=== PATIENT | female | born 1955 | race Caucasian/White ===

== ENCOUNTER 2018-09-01 01:38 | Emergency (ER) | payer MEDICAID ==
[2018-09-01 02:12] LABS: ABSOLUTE BASOPHILS # (AUTO) 0.1 10^3/uL (0.0-0.2); ABSOLUTE EOSINOPHILS # (AUTO) 0.6 10^3/uL (0.0-0.6); ABSOLUTE LYMPHOCYTES (AUTO) 1.6 10^3/uL (0.5-4.7); ABSOLUTE MONOCYTES (AUTO) 1.1 10^3/uL (0.1-1.4); ABSOLUTE NEUT (AUTO) 11.7 10^3/uL (1.7-8.2); BASOPHILS % (AUTO) 0.6 % (0-2); EOSINOPHILS % (AUTO) 4.3 % (0-6); HEMATOCRIT 36.6 % (36.0-47.0); HEMOGLOBIN 11.7 g/dL (12.0-15.5); LYMPHOCYTES % (AUTO) 10.7 % (13-45); MEAN CORPUSCULAR HEMOGLOBIN 27.7 pg (27.0-33.4); MEAN CORPUSCULAR HGB CONC 32.1 g/dL (32.0-36.0); MEAN CORPUSCULAR VOLUME 86 fl (80-97); PLATELET COUNT 271 10^3/uL (150-450); RED BLOOD COUNT 4.24 10^6/uL (3.72-5.28); RED CELL DISTRIBUTION WIDTH 16.8 % (11.5-14.0); SEGMENTED NEUTROPHILS % (AUTO) 77.4 % (42-78); TOTAL CELLS COUNTED % (AUTO) 100 %; WHITE BLOOD COUNT 15.1 10^3/uL (4.0-10.5)
--- NOTE | 2018-09-01 02:12 | ER Document Report ---
ED Cardiac - General Stated Complaint: CHEST PAIN Time Seen by Provider: 09/01/18 01:44 Primary Care Provider: MEDINA DUNHAM MD [Primary Care Provider] - Follow up as needed - [facility] Notes: Patient is a 63-year-old female with a history of hypertension, high cholesterol, diabetes, A. fib, and a triple bypass 1 month ago who presents to the emergency department via EMS for the chief complaint of chest pressure. Patient states that around 7 PM tonight she was walking into the restaurant she developed the chest pressure which has continued to get worse. Patient states that it feels like a constant pressure in the center of her chest and is accompanied with shortness of breath. Patient does deny nausea or abdominal pain. Patient reports that her pain is a 5 out of 5. Patient states pain is worse she takes a deep breath. Patient states that she did take 4 baby aspirin at home prior to EMS arrival. Patient is on Eliquis. - Related Data Allergies/Adverse Reactions: metronidazole [From Flagyl] Allergy (Severe, Verified 12/20/13 03:10) Rash Metronidazole HCl [From Flagyl] Allergy (Severe, Verified 12/20/13 03:10) Rash Past Medical History - General Information source: Patient - Social History Smoking Status: Unknown if Ever Smoked Frequency of alcohol use: None Drug Abuse: None Family History: Reviewed & Not Pertinent - Past Medical History Cardiac Medical History: Reports: Hx Atrial Fibrillation, Hx Hypercholesterolemia, Hx Hypertension Pulmonary Medical History: Reports: Hx Asthma, Hx Bronchitis Denies: Hx COPD, Hx Pneumonia, Hx Respiratory Failure, Hx Sleep Apnea, Hx Tuberculosis EENT Medical History: Reports: None Neurological Medical History: Reports: None. Denies: Hx Cerebrovascular Accident, Hx Seizures Endocrine Medical History: Reports: Hx Diabetes Mellitus Type 2. Denies: Hx Graves' Disease, Hx Hyperthyroidism, Hx Hypothyroidism Renal/ Medical History: Reports: None. Denies: Hx End Stage Renal Disease, Hx Kidney Stones, Hx Peritoneal Dialysis Malignancy Medical History: Reports: None. Denies: Hx Lung Cancer GI Medical History: Reports: Hx Gastroesophageal Reflux Disease, Hx Hiatal Hernia, Hx Irritable Bowel. Denies: Hx Crohn's Disease, Hx Liver Failure, Hx Pancreatitis, Hx Ulcer Musculoskeletal Medical History: Reports Hx Arthritis - Lt shoulder, Rt knee, Denies Hx Fibromyalgia, Denies Hx Muscular Dystrophy, Denies Hx Systemic Lupus Erythematosus Skin Medical History: Reports None Psychiatric Medical History: Reports: None Denies: Hx Bipolar Disorder, Hx Depression, Hx Post Traumatic Stress Disorder, Hx Schizophrenia Traumatic Medical History: Reports: Hx Fractures - Rt pinky finger Infectious Medical History: Reports: None Past Surgical History: Reports: Hx Appendectomy, Hx Cardiac Surgery - Triple Bypass 2019, Hx Cholecystectomy, Hx Tubal Ligation. Denies: Hx Bowel Surgery, Hx Section, Hx Colostomy, Hx Coronary Artery Bypass Graft, Hx Gastric Bypass Surgery, Hx Herniorrhaphy, Hx Hysterectomy, Hx Mastectomy, Hx Pacemaker. Comment Only: Hx Tonsillectomy - unsure - Immunizations Hx Diphtheria, Pertussis, Tetanus Vaccination: Yes Review of Systems - Review of Systems Constitutional: No symptoms reported EENT: No symptoms reported Cardiovascular: See HPI Respiratory: See HPI Gastrointestinal: No symptoms reported Genitourinary: No symptoms reported Female Genitourinary: No symptoms reported Musculoskeletal: No symptoms reported Skin: No symptoms reported Hematologic/Lymphatic: No symptoms reported Neurological/Psychological: No symptoms reported Physical Exam - Vital signs Vitals: Resp 33 H 09/01/18 01:41 - Notes Notes: Reviewed vital signs and nursing note as charted by RN. CONSTITUTIONAL: Obese, Well-nourished. Moaning in pain. HEAD: Normocephalic; atraumatic; No swelling ENT: Airway patent, mucous membranes pink and moist NECK: Supple, no cervical lymphadenopathy, no masses CARD: Tachycardiac rate and rhythm; no murmurs, no rubs, no gallops, capillary refill < 2 seconds, symmetric pulses. Healing scar located in the center of the chest - no drainage, surrounding cellulitis or open areas. Tender to palpation around scar. RESP: Respiratory rate and effort are somewhat labored with a RR of 24. There is normal chest excursion. The lungs are clear to auscultation bilaterally, no wheezing, no rales, no rhonchi. ABD/GI: Normal bowel sounds; non-distended; soft, non-tender, no rebound, no guarding, no palpable organomegaly EXT: Old scars noted to bilateral knees, symmetric dorsalis pedis pulses < 2 sec, + 3 pitting edema to right lower extremity. SKIN: Normal color for age and race; warm; dry; good turgor; healing surgical scars x 2 to right lower extremity. NEURO: No facial asymmetry; Moves all extremities equally; Motor and sensory function intact Course - Re-evaluation Re-evalutation: 09/01/18 02:00 Upon initial eval of patient, patient is sitting upright on stretcher moaning and complaining of midsternal chest pressure. Patient did take baby aspirin x4 prior to arrival. Will give sublingual nitro for her discomfort. Appropriate labs and imaging ordered at this time. Family at bedside. Patient sitting upright on stretcher in no acute distress. Patient states that her pain level is a 1 out of 5. Patient states that it feels like there is still just a little bit of pressure in the center of her chest. 0459: Spoke with Dr. Galan regarding possible admission. Would like for me to contact patient's surgeon at [facility] for recommendations. 0503: Spoke with Dr. Bud Moseley, credit and loan collections supervisor cardiology for [facility] and made aware of patient's case, including negative first Troponin and current chest pressure 1/5. Per Dr. Bud Moseley's recommendations he states to repeat Troponin after four hours and if negative patient can follow up outpatient for stress test. 09/01/18 07:06 Patient sitting upright on stretcher on 2 L nasal cannula patient reports that since her surgery she has been wearing 2 L of oxygen. Patient reports that she still having a chest pressure about a 1 out of 5. The second troponin was negative and per the recommendations of Dr. Bud Moseley at [facility] patient can be discharged with close follow-up with her barrel inspector tight. Instructed patient to call her barrel inspector tight tomorrow to make aware of her ER visit and chest pressure for outpatient studies. Strict return precautions given to patient to include chest pain, dizziness, worsening of pain, diaphoresis, vomiting, palpitations. She does not appear to be in any acute distress. Patient skin is warm and dry. Patient breathing is even and unlabored. 09/01/18 07:33 After a thorough conversation with the significant other and patient, the significant other states that over the past few weeks they both have been unable to sleep at night. He reports that the patient will sleep 1 or 2 hours at a time and then wake up moaning due to the pain and soreness in the middle of her chest over the scar. After speaking with the patient it appears that this discomfort that she was feeling is not new as of last night but rather has been on going. Patient states that if she could just get some pain relief and some sleep that she would feel comfortable going home. Administer a another dose of pain medication and let patient rest. If patient is feeling well will continue with the discharge home. Patient significant other verbalized understanding of plan. - Vital Signs Vital signs: Temp Pulse Resp BP Pulse Ox 99.0 F 16 146/90 H 96 09/01/18 02:22 09/01/18 07:01 09/01/18 07:00 09/01/18 07:01 - Laboratory Result Diagrams: 09/01/18 01:50 09/01/18 01:50 Laboratory results interpreted by me: 09/01/18 09/01/18 01:50 01:50 WBC 15.1 H Hgb 11.7 L RDW 16.8 H Lymphocytes % 10.7 L Absolute Neutrophils 11.7 H Chloride 97 L Glucose 299 H Alkaline Phosphatase 144 H Patient's blood glucose was 299 with laboratory draw. Patient's CO2 and anion gap are within normal. Patient is not acidotic. Patient's white blood cell count is slightly elevated at 15.1. Patient's repeat oral temperature is 98.4. - Diagnostic Test Radiology reviewed: Reports reviewed - EKG Interpretation by Me Additional EKG results interpreted by me: 09/01/18 02:00 Patient's EKG shows a sinus tachycardia with a rate of 100. Patient's OR interval is at 172 and normal, patient's QT is 344 and QTC is 444. She has a no rmal axis deviation. There appears to be a small amount of T wave inversion in lead 3 but this is not consecutive in other leads. There is no ST elevation or ectopy noted. Discharge - Discharge Clinical Impression: Chest pressure Condition: Stable Disposition: HOME, SELF-CARE Additional Instructions: Today you were seen in the emergency department for chest pressure. Your chest x-ray was negative. We did obtain blood work 2 different times to check for your cardiac markers called a Troponin. Those 2 markers were negative. I did speak with the on-call barrel inspector tight at [facility] Dr. Moseley who stated that if your cardiac enzymes were negative and your vital signs were stable you are able to go home and follow-up with your barrel inspector tight Sunday for further testing. Due to your recent surgery it is imperative that you follow-up with your barrel inspector tight on Sunday. Please return to the emergency department if you have any worsening chest pain, palpitations, shortness of breath, diaphoresis (which is sweating), vomiting, fever, any worsening signs or symptoms. Please continue your previously prescribed medications. Your blood sugar and your lab work was 299. Please recheck your blood sugars and follow-up in closely at home. Please continue your diabetic medications as previously prescribed. Chest Pain of Unclear Cause The exact cause of your chest pain isn't clear. Fortunately, there is no evidence of a dangerous medical condition. Further testing may be required to find the source of the pain. Most often, we find that this pain is coming from the chest wall -- the muscles or rib joints in the chest. But chest pain can come from the lung and lung lining, the esophagus, the heart valves or heart lining, and even the stomach or gallbladder. Rest. Eat lightly until the pain is gone. We may prescribe medicine for pain and inflammation. You should call the physician immediately if the pain radiates to the shoulder, jaw or arms; if you start to run a fever or develop a cough; or if you develop shortness of breath, or other new or alarming symptoms. Chest Wall Pain Your chest pain has been diagnosed as coming from the chest wall. This is often caused by straining the muscles or joints in the chest during physical activity, direct trauma, coughing, or vigorous vomiting. Persons with arthritis are especially prone to this type of pain, due to inflammation of the cartilage joints near the breast bone. Occasionally, no cause can be found. Rest from strenuous physical activity. This kind of chest pain is usually made worse by movement of the chest. Depending on the symptoms, we may prescribe medicine for pain, muscle relaxation, and antiinflammatory effects. If the pain is new, and seems to be due to muscle strain, cold packs can help. Otherwise, apply gentle warmth to the painful area for 15 minutes every ho ur or two. You should contact the doctor immediately if things change. Further evaluation is needed if you develop a fever or cough, if the nature of the pain changes, or if you become short of breath. Referrals: MEDINA DUNHAM MD [Primary Care Provider] - Follow up as needed
[2018-09-01 02:13] LABS: INTERNATIONAL RATION (INR) 1.02; PROTHROMBIN TIME 13.9 SEC (11.4-15.4)
[2018-09-01 02:14] LABS: PARTIAL THROMBOPLASTIN TIME 33.7 SEC (23.5-35.8)
[2018-09-01 02:18] LABS: ALANINE AMINOTRANSFERASE 34 U/L (9-52); ALBUMIN 3.9 g/dL (3.5-5.0); ALKALINE PHOSPHATASE 144 U/L (38-126); ANION GAP 12 (5-19); ASPARTATE AMINO TRANSFERASE 30 U/L (14-36); BILIRUBIN,DIRECT 0.3 mg/dL (0.0-0.4); BILIRUBIN,TOTAL 0.5 mg/dL (0.2-1.3); BLOOD UREA NITROGEN 12 mg/dL (7-20); CALCIUM 9.4 mg/dL (8.4-10.2); CARBON DIOXIDE 29 mmol/L (22-30); CHLORIDE 97 mmol/L (98-107); GLUCOSE 299 mg/dL (75-110); POTASSIUM 4.7 mmol/L (3.6-5.0); SODIUM 137.8 mmol/L (137-145); TOTAL PROTEIN 7.4 g/dL (6.3-8.2)
--- NOTE | 2018-09-01 02:48 | RADIOLOGY REPORT (SQ) ---
EXAM DESCRIPTION: XR CHEST 1 VIEW COMPLETED DATE/TME: 09/01/2018 01:50 CLINICAL HISTORY: 63 years Female, chest pain COMPARISON: None. NUMBER OF VIEWS/TECHNIQUE: 1/AP FINDINGS: Adequate lung volume, clear parenchyma, normal cardiac silhouette, and intact bony thorax.Sternotomy. Cardiac/mediastinal hardware/clips. IMPRESSION: No acute cardiopulmonary findings.
[2018-09-01] MEDS: NITROGLYCERIN 0.4 MG/TAB 25 TAB/BOTTLE SL PRN ×2 (03:02→03:13)
[2018-09-01] MEDS ORDERED: FENTANYL CITRATE INJ/PF 100 MCG/2 ML AMPUL IV ONE (03:39)
[2018-09-01] MEDS ORDERED: MORPHINE SULFATE 10 MG/ML INJ IV ONE ×2 (04:26→07:35)
[2018-09-01 09:01] VITALS: BP 129/70
[2018-09-01] MEDS ORDERED: OXYCODONE-ACETAMINOPHEN 5-325 MG TABLET PO ONE (09:31)
--- NOTE | 2018-09-01 09:42 | EKG REPORT ---
SEVERITY:- BORDERLINE ECG - SINUS TACHYCARDIA BORDERLINE T WAVE ABNORMALITIES : Confirmed by: Liudmila Daley MD 01-Sep-2018 09:41:22
== END 2018-09-01 09:39 | disposition home or self-care (01) ==
LOC: ER 01:38
DX: R07.89 Other chest pain (principal); J45.909 Unspecified asthma, uncomplicated; R06.02 Shortness of breath; R60.0 Localized edema; R00.0 Tachycardia, unspecified; D72.829 Elevated white blood cell count, unspecified; I10 Essential (primary) hypertension; E11.9 Type 2 diabetes mellitus without complications; I48.91 Unspecified atrial fibrillation; Z79.01 Long term (current) use of anticoagulants; Z95.1 Presence of aortocoronary bypass graft; Z88.1 Allergy status to other antibiotic agents
CPT/HCPCS: 93005; 96376; 99285; 96374; 96375; 36415; 85025; 85610; 85730; 80053; 84484; 71045; 93010; J3010; J2270; J3490

== ENCOUNTER 2019-10-30 18:50 | Inpatient (IN) | payer MEDICAID ==
[2019-10-30] MEDS ORDERED: DEXTROSE 50%-WATER 25 GM/50 ML DISP.SYRIN IV ONE ×2 (19:03→19:06)
[2019-10-30 19:20] LABS: ABSOLUTE BASOPHILS # (AUTO) 0.1 10^3/uL (0.0-0.2); ABSOLUTE EOSINOPHILS # (AUTO) 0.2 10^3/uL (0.0-0.6); ABSOLUTE LYMPHOCYTES (AUTO) 1.4 10^3/uL (0.5-4.7); ABSOLUTE MONOCYTES (AUTO) 0.9 10^3/uL (0.1-1.4); ABSOLUTE NEUT (AUTO) 8.5 10^3/uL (1.7-8.2); BASOPHILS % (AUTO) 1.1 % (0-2); HEMATOCRIT 25.4 % (36.0-47.0); HEMOGLOBIN 8.1 g/dL (12.0-15.5); LYMPHOCYTES % (AUTO) 12.4 % (13-45); MEAN CORPUSCULAR HEMOGLOBIN 26.3 pg (27.0-33.4); MEAN CORPUSCULAR HGB CONC 32.1 g/dL (32.0-36.0); MEAN CORPUSCULAR VOLUME 82 fl (80-97); MONOCYTES % (AUTO) 8.3 % (3-13); PLATELET COUNT 138 10^3/uL (150-450); RED CELL DISTRIBUTION WIDTH 23.6 % (11.5-14.0); SEGMENTED NEUTROPHILS % (AUTO) 76.2 % (42-78); TOTAL CELLS COUNTED % (AUTO) 100 %; WHITE BLOOD COUNT 11.2 10^3/uL (4.0-10.5)
[2019-10-30 19:53] LABS: ALBUMIN 3.7 g/dL (3.5-5.0); ALKALINE PHOSPHATASE 129 U/L (38-126); ANION GAP 6 (5-19); ASPARTATE AMINO TRANSFERASE 39 U/L (14-36); BILIRUBIN,DIRECT 0.1 mg/dL (0.0-0.4); BILIRUBIN,TOTAL 0.6 mg/dL (0.2-1.3); BLOOD UREA NITROGEN 33 mg/dL (7-20); CALCIUM 8.7 mg/dL (8.4-10.2); CARBON DIOXIDE 37 mmol/L (22-30); CHLORIDE 95 mmol/L (98-107); POTASSIUM 4.6 mmol/L (3.6-5.0)
[2019-10-30 19:56] LABS: GLUCOSE 46 mg/dL (75-110)
--- NOTE | 2019-10-30 20:47 | ER Document Report ---
ED General - General Chief Complaint: Low Blood Sugar Stated Complaint: BLOOD SUGAR PROBLEMS Primary Care Provider: MEDINA DUNHAM MD [Primary Care Provider] - Follow up as needed Mode of Arrival: Medic Information source: Patient, Relative, Emergency Med Personnel, [facility] Records Cannot obtain history due to: Altered mental status Notes: Patient is a 64-year-old female presenting to the emergency department chief complaint of low blood sugar and altered mental status. On further discussion with the patient's he states that the patient has been acting unusual for the past several days has been more confused has been twitching and demonstrating slurring of speech. Patient has a prior history of coronary artery disease CHF frequent UTIs pericarditis and diabetes. Patient is reported to use oxygen supplemental at home. At time of evaluation patient seems to have waxing and waning of her level of consciousness. TRAVEL OUTSIDE OF THE [place] IN LAST 30 DAYS: No - HPI Onset: Other - 3 days Onset/Duration: Persistent, Worse Quality of pain: No pain Severity: None Pain Level: 0 Associated symptoms: Shortness of breath, Slow to respond, Weakness Exacerbated by: Denies Relieved by: Denies Similar symptoms previously: Yes Recently seen / treated by doctor: No - Related Data Allergies/Adverse Reactions: metronidazole [From Flagyl] Allergy (Severe, Verified 12/20/13 03:10) Rash Metronidazole HCl [From Flagyl] Allergy (Severe, Verified 12/20/13 03:10) Rash Past Medical History - General Information source: Patient, Relative, Emergency Med Personnel, [facility] Records Cannot obtain history due to: Altered mental status - Social History Smoking Status: Former Smoker Chew tobacco use (# tins/day): No Frequency of alcohol use: None Drug Abuse: None Lives with: Spouse/Significant other Family History: Reviewed & Not Pertinent Patient has suicidal ideation: No Patient has homicidal ideation: No - Past Medical History Cardiac Medical History: Reports: Hx Atrial Fibrillation, Hx Hypercholesterolemia, Hx Hypertension Pulmonary Medical History: Reports: Hx Asthma, Hx Bronchitis Denies: Hx COPD, Hx Pneumonia, Hx Respiratory Failure, Hx Sleep Apnea, Hx Tuberculosis Neurological Medical History: Denies: Hx Cerebrovascular Accident, Hx Seizures Endocrine Medical History: Reports: Hx Diabetes Mellitus Type 2. Denies: Hx Graves' Disease, Hx Hyperthyroidism, Hx Hypothyroidism Renal/ Medical History: Denies: Hx End Stage Renal Disease, Hx Kidney Stones, Hx Peritoneal Dialysis Malignancy Medical History: Denies: Hx Lung Cancer GI Medical History: Reports: Hx Gastroesophageal Reflux Disease, Hx Hiatal Hernia, Hx Irritable Bowel. Denies: Hx Crohn's Disease, Hx Liver Failure, Hx Pancreatitis, Hx Ulcer Musculoskeletal Medical History: Reports Hx Arthritis - Lt shoulder, Rt knee, Denies Hx Fibromyalgia, Denies Hx Muscular Dystrophy, Denies Hx Systemic Lupus Erythematosus Psychiatric Medical History: Denies: Hx Bipolar Disorder, Hx Depression, Hx Post Traumatic Stress Disorder, Hx Schizophrenia Traumatic Medical History: Reports: Hx Fractures - Rt pinky finger Past Surgical History: Reports: Hx Appendectomy, Hx Cardiac Surgery - Triple Bypass 2019, Hx Cholecystectomy, Hx Tubal Ligation. Denies: Hx Bowel Surgery, Hx Section, Hx Colostomy, Hx Coronary Artery Bypass Graft, Hx Gastric Bypass Surgery, Hx Herniorrhaphy, Hx Hysterectomy, Hx Mastectomy, Hx Pacemaker. Comment Only: Hx Tonsillectomy - unsure - Immunizations Hx Diphtheria, Pertussis, Tetanus Vaccination: Yes Review of Systems - Review of Systems Notes: REVIEW OF SYSTEMS: CONSTITUTIONAL : Per HPI EENT: Denies eye, ear, throat, or mouth pain or symptoms. Denies nasal or sinus congestion. CARDIOVASCULAR: Denies chest pain. RESPIRATORY: Per HPI GASTROINTESTINAL: Denies abdominal pain. Denies nausea, vomiting, or diarrhea. Denies constipation. GENITOURINARY: Denies difficulty urinating, painful urination, burning, frequency, or blood in urine. MUSCULOSKELETAL: Denies neck or back pain or joint pain or swelling. SKIN: Denies rash or skin lesions. HEMATOLOGIC : Denies easy bruising or bleeding. NEUROLOGICAL: Per HPI PSYCHIATRIC: Denies suicidal or homicidal ideations 10 Systems are negative unless otherwise specified above Physical Exam - Vital signs Vitals: BP 130/83 H 10/30/19 18:56 - Notes Notes: PHYSICAL EXAMINATION: GENERAL: Patient is a 60-year-old female appearing older than stated age presenting to the emergency department for altered mental status low blood glucose slurring of speech and shortness of breath HEAD: Atraumatic, normocephalic. EYES: Pupils equal round and reactive to light, extraocular movements intact, sclera anicteric, conjunctiva are normal. ENT: nares patent, oropharynx clear without exudates. Dry mucous membranes. NECK: Normal range of motion, supple without lymphadenopathy, no appreciable JVD LUNGS: Lungs clear to auscultation bilaterally and equal. No wheezes rales or rhonchi. HEART: Regular rate and rhythm without murmurs ABDOMEN: Soft, morbidly obese, nontender, normal bowel sounds. No guarding, no rebound. No masses appreciated. EXTREMITIES: Active full range of motion, no pitting or edema. No cyanosis. 2+ pulses x4 NEUROLOGICAL: Waxing and waning of patient's level of consciousness intermittently answering questions appropriately and other times seems very confused she states that her birthday is November 2009 SKIN: Warm, Dry, and intact. Normal turgor, no rashes or lesions noted. Course - Re-evaluation Re-evalutation: 10/30/19 22:54 Patient has been maintained on a potline monitor the entire time in the emergency department we have done serial Accu-Cheks observing her blood glucose level which is remained normal most recently at 10:45 PM patient's blood glucose was 130. Patient has been reevaluated several times is may be a little bit more clear and responsive but still is demonstrating some difficulty with speech and confusion. On examination there is no focal neurologic deficit however when looking for upper extremity pronator drift the patient does have a wobbly bilateral movement. On evaluation of the patient's labs she does show a new anemia continued acute kidney injury she does have a urinary tract infection for which she has received 1 g of Rocephin IV patient also has signs of CHF numerically. Which may also be secondary to her renal insufficiency. - Vital Signs Vital signs: Temp Pulse Resp BP Pulse Ox 98.2 F 19 120/72 91 L 10/30/19 19:06 10/30/19 19:03 10/30/19 19:03 10/30/19 19:03 - Laboratory Result Diagrams: 10/30/19 19:00 10/30/19 19:00 Laboratory results interpreted by me: 10/30/19 10/30/19 10/30/19 19:00 19:00 19:00 WBC 11.2 H RBC 3.10 L Hgb 8.1 L Hct 25.4 L MCH 26.3 L RDW 23.6 H Plt Count 138 L Lymph % (Auto) 12.4 L Absolute Neuts (auto) 8.5 H PT 20.5 H Carbonic Acid ABG pCO2 ABG pO2 ABG HCO3 ABG Total CO2 Chloride 95 L Carbon Dioxide 37 H BUN 33 H Creatinine 2.17 H Est GFR ( Amer) 28 L Est GFR (MDRD) Non-Af 23 L Glucose 46 L POC Glucose Hemoglobin A1c % Magnesium AST 39 H Alkaline Phosphatase 129 H NT-Pro-B Natriuret Pep Urine Protein Ur Leukocyte Esterase Urine Ascorbic Acid Acetaminophen 10/30/19 10/30/19 10/30/19 19:00 19:00 19:00 WBC RBC Hgb Hct MCH RDW Plt Count Lymph % (Auto) Absolute Neuts (auto) PT Carbonic Acid ABG pCO2 ABG pO2 ABG HCO3 ABG Total CO2 Chloride Carbon Dioxide BUN Creatinine Est GFR ( Amer) Est GFR (MDRD) Non-Af Glucose POC Glucose Hemoglobin A1c % 7.4 H Magnesium 2.7 H AST Alkaline Phosphatase NT-Pro-B Natriuret Pep 2530 H Urine Protein Ur Leukocyte Esterase Urine Ascorbic Acid Acetaminophen < 10 L 10/30/19 10/30/19 10/30/19 19:01 19:12 20:03 WBC RBC Hgb Hct MCH RDW Plt Count Lymph % (Auto) Absolute Neuts (auto) PT Carbonic Acid ABG pCO2 ABG pO2 ABG HCO3 ABG Total CO2 Chloride Carbon Dioxide BUN Creatinine Est GFR ( Amer) Est GFR (MDRD) Non-Af Glucose POC Glucose 67 L 253 H 164 H Hemoglobin A1c % Magnesium AST Alkaline Phosphatase NT-Pro-B Natriuret Pep Urine Protein Ur Leukocyte Esterase Urine Ascorbic Acid Acetaminophen 10/30/19 10/30/19 10/30/19 20:50 21:40 22:45 WBC RBC Hgb Hct MCH RDW Plt Count Lymph % (Auto) Absolute Neuts (auto) PT Carbonic Acid 1.62 H ABG pCO2 53.9 H ABG pO2 69.7 L ABG HCO3 35.3 H ABG Total CO2 37.0 H Chloride Carbon Dioxide BUN Creatinine Est GFR ( Amer) Est GFR (MDRD) Non-Af Glucose POC Glucose 130 H Hemoglobin A1c % Magnesium AST Alkaline Phosphatase NT-Pro-B Natriuret Pep Urine Protein 30 H Ur Leukocyte Esterase LARGE H Urine Ascorbic Acid 40 H Acetaminophen - Diagnostic Test Radiology reviewed: Reports reviewed Critical Care Note - Critical Care Note Total time excluding time spent on procedures (mins): 40 Comments: Please allow 40 minutes of critical care time spent obtaining history from patient or surrogate, discussions with consultants, development of treatment plan with patient or surrogate, evaluation of patient's response to treatment, examination of patient. This also includes ordering and reviewing laboratory, EKG and / or radiologic studies, performing and reassessing treatments and i nterventions as well as reviewing previous visits and old charts. This is exclusive of separately billable procedures. Discharge - Discharge Clinical Impression: FELIX (acute kidney injury), Hypoglycemia associated with diabetes Altered mental status Qualifiers: Altered mental status type: disorientation Qualified Code(s): R41.0 - Disorientation, unspecified UTI (urinary tract infection) Qualifiers: Urinary tract infection type: site unspecified Hematuria presence: without hematuria Qualified Code(s): N39.0 - Urinary tract infection, site not specified Anemia Qualifiers: Anemia type: unspecified type Qualified Code(s): D64.9 - Anemia, unspecified Condition: Fair Disposition: ADMITTED INPATIENT Admitting Provider: Lan (Hospitalist) Unit Admitted: Medical Floor Referrals: MEDINA DUNHAM MD [Primary Care Provider] - Follow up as needed
[2019-10-30 21:00] LABS: INTERNATIONAL RATION (INR) 1.73; PROTHROMBIN TIME 20.5 SEC (11.4-15.4)
--- NOTE | 2019-10-30 21:04 | EKG REPORT ---
SEVERITY:- ABNORMAL ECG - SINUS RHYTHM FIRST DEGREE AV BLOCK BORDERLINE T WAVE ABNORMALITIES : Confirmed by: Pop Ordoñez MD 30-Oct-2019 21:02:31
[2019-10-30 21:10] LABS: ACETAMINOPHEN < 10 ug/mL (10-30); ALCOHOL < 10 mg/dL (NONE DETECTED)
[2019-10-30 21:21] LABS: APPEARANCE,URINE CLOUDY; BILIRUBIN,URINE NEGATIVE (NEGATIVE); COLOR,URINE AMBER; GLUCOSE, URINE NEGATIVE (NEGATIVE); KETONES,URINE NEGATIVE (NEGATIVE); LEUKOCYTE ESTERASE,URINE LARGE (NEGATIVE); NITRITE,URINE NEGATIVE (NEGATIVE); PROTEIN,URINE 30 mg/dL (NEGATIVE); URINE SPECIFIC GRAVITY 1.012; UROBILINOGEN,URINE NEGATIVE mg/dL (<2.0)
[2019-10-30 21:22] LABS: CREATINE KINASE MB 2.42 ng/mL (<4.55); NT PRO BNP 2530 pg/mL (<125)
[2019-10-30 21:31] LABS: TROPONIN I < 0.012 ng/mL
[2019-10-30] MEDS ORDERED: CEFTRIAXONE 1 GM/D5W RTU 1 GM/50 ML RTUPB IV ONE (21:51)
[2019-10-30 21:57] LABS: ARTERIAL BLOOD BASE EXCESS 9.8 mmol/L; ARTERIAL BLOOD FIO2 3.5L; ARTERIAL BLOOD H2CO3 1.62 mmol/L (1.05-1.35); ARTERIAL BLOOD HCO3 35.3 mmol/L (20-24); ARTERIAL BLOOD O2 SATURATION 94.2 % (94-98); ARTERIAL BLOOD PCO2 53.9 mmHg (35-45); ARTERIAL BLOOD PH 7.43 (7.35-7.45); ARTERIAL BLOOD PO2 69.7 mmHg (80-100)
--- NOTE | 2019-10-30 22:21 | RADIOLOGY REPORT (SQ) ---
EXAM DESCRIPTION: X-ray, AP portable view of the chest CLINICAL HISTORY: 64 years Female, sob COMPARISON: AP portable view of the chest 09/01/2018 FINDINGS: Lungs: Lungs are clear. No pneumonia or edema. No pneumothorax or pleural effusion. Mediastinum: Heart size is enlarged. Atrial excluded clip is seen. Sternal wires are noted. Overall the appearance is stable. Bones: Osseous structures are stable IMPRESSION: No acute process. Stable cardiomegaly.
--- NOTE | 2019-10-30 22:21 | RADIOLOGY REPORT (SQ) ---
EXAM DESCRIPTION: CT HEAD WITHOUT IV CONTRAST COMPLETED DATE/TME: 10/30/2019 20:42 CLINICAL HISTORY: 64 years, Female, ams COMPARISON: 12/20/2013 CT TECHNIQUE: 201 Images stored on PACS. All CT scanners at this facility use dose modulation, iterative reconstruction, and/or weight based dosing when appropriate to reduce radiation dose to as low as reasonably achievable (ALARA). [facility]: Dose Right [facility]: CareDose [facility]: Dose Right [facility]: Teradose 4D [facility]: [employer] LIMITATIONS: None. FINDINGS: The globes are intact. Minor mucosal thickening of the maxillary sinuses. No displaced or depressed skull fracture. No intra or extra-axial hemorrhage. CT is limited for evaluation of acute infarct. No CT evidence for large or territorial acute infarct. No mass or midline shift. Mild atrophy with minor small vessel ischemic change IMPRESSION: Mild atrophy and small vessel ischemic change. No acute intracranial abnormality. TECHNICAL DOCUMENTATION: Quality ID # [id number]: Final reports with documentation of one or more dose reduction techniques (e.g., Automated exposure control, adjustment of the mA and/or kV according to patient size, use of iterative reconstruction technique) copyright 2011 [employer]- All Rights Reserved
[2019-10-30] MEDS ORDERED: NORMAL SALINE 1000 ML 1,000 ML IV ONE (23:08)
[2019-10-30] MEDS ORDERED: MAG HYDROX/AL HYDROX/SIMETH SUSP 30 ML UDCUP PO PRN (23:42)
[2019-10-30] MEDS ORDERED: ONDANSETRON HCL INJ/PF 4 MG/2 ML SDV IV PRN (23:42)
[2019-10-30] MEDS ORDERED: MAGNESIUM HYDROXIDE SUSP 30 ML UDCUP PO PRN (23:42)
[2019-10-30] MEDS ORDERED: GUAIFENESIN SYRP 200 MG/10 ML UDC PO PRN (23:48)
[2019-10-30] MEDS ORDERED: ACETAMINOPHEN 650 MG SUPP.RECT PR PRN (23:48)
[2019-10-30] MEDS ORDERED: ACETAMINOPHEN 325 MG TABLET PO PRN (23:48)
[2019-10-30] MEDS ORDERED: METOPROLOL TARTRATE PF/INJ 5 MG/5 ML SDV IV PRN (23:48)
[2019-10-30] MEDS ORDERED: HYDRALAZINE HCL INJ/PF 20 MG/1 ML SDV IV PRN (23:48)
[2019-10-30] MEDS ORDERED: DEXTROSE 50%-WATER 25 GM/50 ML DISP.SYRIN IV PRN ×2 (23:49)
[2019-10-30] MEDS ORDERED: GLUCAGON,HUMAN RECOMB 1 MG INJ IM PRN (23:49)
[2019-10-30] MEDS ORDERED: DEXTROSE 40% GEL 15 GM TUBE PO PRN ×2 (23:49)
[2019-10-31] MEDS ORDERED: CEFEPIME 2 GM/D5W RTU 2 GM/50 ML RTUPB IV ONE (00:45)
[2019-10-31] MEDS ORDERED: PANTOPRAZOLE SODIUM 40 MG VIAL IV ONE ×2 (00:45→06:05)
[2019-10-31] MEDS: RINGERS SOLUTION,LACTATED 1,000 ML IV PRN ×2 (01:37→07:34)
--- NOTE | 2019-10-31 04:24 | PDOC H&P ---
History of Present Illness Admission Date/PCP: 10/30/2019 23:14 MEDINA DUNHAM MD Patient complains of: Altered mental status History of Present Illness: BISMARK MAURO is a 64 year old female who presented to the emergency room with a 3-day history of altered mental status. Patient is confused and incapable of providing reliable input into her medical history. Her admits that she has been progressively worsening in her altered mental state over the last 3 days with it becoming severe today. He describes his observed symptoms of her altered mental state as stupor, confusion and poor responsiveness to verbal stimuli. He admits prior similar problems related to hypoglycemia. In the emergency room the patient was found to be confused and somewhat stuporous with the presence of pyuria and a mildly elevated white blood count. Her initial blood sugar was 46 but it responded well to treatment and her mental status did not global director air and climate change the course of several hours after correction. CT scan of the head was negative for acute processes. She was subsequently admitted to the hospital for further evaluation and treatment. Past Medical History Past Medical History: Due to the patient's altered mental status her past medical history, past surgical history, social history and family medical history are obtained from the best available reliable source. Cardiac Medical History: Reports: Atrial Fibrillation, Coronary Artery Disease, Hyperlipidema, Hypertension, Other - Pericarditis Pulmonary Medical History: Reports: Asthma, Bronchitis Denies: Chronic Obstructive Pulmonary Disease (COPD), Pneumonia, Respiratory Failure, Sleep Apnea, Tuberculosis EENT Medical History: Denies: Cataracts, Ears - Hearing aids Neurological Medical History: Denies: Hemorrhagic CVA, Ischemic CVA, Seizures Endocrine Medical History: Reports: Diabetes Mellitus Type 2, Obesity Denies: Diabetes Mellitus Type 1, Hyperthyroidism, Hypothyroidism Renal/ Medical History: Denies: Chronic Kidney Disease, Nephrolithiasis Malignancy Medical History: Reports: None Denies: Lung Cancer GI Medical History: Reports: Gastroesophageal Reflux Disease, Hiatal Hernia Denies: Cirrhosis, Crohn's Disease, Hepatitis, Peptic Ulcer Disease Musculoskeltal Medical History: Reports: Arthritis - Lt shoulder, Rt knee Denies: Fibromyalgia, Gout Skin Medical History: Denies: Eczema Psychiatric Medical History: Denies: Alcohol Dependency, Bipolar Disorder, Depression, Post Traumatic Stress Disorder, Substance Abuse, Tobacco Dependency Traumatic Medical History: Reports: None Hematology: Denies: Anemia, Bleeding Tendencies Infectious Medical History: Reports: None Past Surgical History Past Surgical History: Due to the patient's altered mental status her past medical history, past surgical history, social history and family medical history are obtained from the best available reliable source. Past Surgical History: Reports: Appendectomy, Cholecystectomy, Knee Replacement, Orthopedic Surgery - Arthroscopic surgery of the left knee, Tubal Ligation Social History Information Source: Relative, [facility] Records Lives with: Spouse/Significant other Smoking Status: Former Smoker Electronic Cigarette use?: No Frequency of Alcohol Use: None Hx Recreational Drug Use: No Drugs: None Hx Prescription Drug Abuse: No Past Social History Note: Due to the patient's altered mental status her past medical history, past surgical history, social history and family medical history are obtained from the best available reliable source. - Advance Directive Resuscitation Status: Full Code Surrogate healthcare decision maker:: Carisa Camacho Family History Family History: CAD, DM, Hypertension, Malignancy Family History: Due to the patient's altered mental status her past medical history, past surgical history, social history and family medical history are obtained from the best available reliable source. Parental Family History Reviewed: Yes Children Family History Reviewed: No Sibling(s) Family History Reviewed.: Yes Medication/Allergy Home Medications: Albuterol Sulfate [Proair HFA] 1 - 2 puff IH Q4 PRN 12/20/13 Aspirin [Aspirin EC] 81 mg PO DAILY 12/20/13 Beclomethasone Dipropionate [Qvar] 2 inh IH BID 12/20/13 Gabapentin 600 mg PO TID 12/20/13 Glipizide [Glipizide Xl] 10 mg PO BID 12/20/13 Insulin Aspart [Novolog Flexpen] 15 unit SUBCUT TID 12/20/13 Insulin Glargine,Hum.rec.anlog [Lantus Insulin Inj 300 Unit/3 ml Pen] 40 unit SUBCUT QHS 12/20/13 Meloxicam 15 mg PO DAILY 12/20/13 Metformin HCl [Glucophage] 500 mg PO BID 12/20/13 Metoprolol Succinate 25 mg PO BID 12/20/13 Nifedipine [Procardia Xl] 90 mg PO DAILY 12/20/13 Ondansetron [Zofran Odt 4 mg Tablet] 1 - 2 tab PO Q4H PRN #15 tab.rapdis 12/20/13 Oxycodone HCl/Acetaminophen [Percocet 5-325 mg Tablet] 1 - 2 tab PO Q4H PRN #15 tablet 12/20/13 Propafenone HCl [Rythmol 150 Mg Tablet] 150 mg PO BID 12/20/13 Ranitidine HCl 150 mg PO BID 12/20/13 Allergies/Adverse Reactions: metronidazole [From Flagyl] Allergy (Severe, Verified 12/20/13 03:10) Rash Metronidazole HCl [From Flagyl] Allergy (Severe, Verified 12/20/13 03:10) Rash Review of Systems ROS unobtainable: Due to mental status - Altered mental status with confusion and stupor Physical Exam Vital Signs: Temp Pulse Resp BP Pulse Ox 98.2 F 18 107/78 97 10/30/19 19:06 10/30/19 23:01 10/30/19 23:01 10/30/19 23:01 Intake & Output 10/28/19 10/29/19 10/30/19 23:59 23:59 23:59 Intake Total 50 Output Total 1600 Balance -1550 Weight 120.8 kg General appearance: PRESENT: no acute distress, morbidly obese, other - Confused and stuporous Head exam: PRESENT: atraumatic, normocephalic Eye exam: PRESENT: conjunctiva pink. ABSENT: conjunctival injection, scleral icterus Ear exam: PRESENT: normal external ear exam. ABSENT: bleeding, drainage Mouth exam: PRESENT: dry mucosa, neck supple Neck exam: ABSENT: thyromegaly, tracheal deviation Respiratory exam: PRESENT: clear to auscultation shena, symmetrical, unlabored Cardiovascular exam: PRESENT: RRR. ABSENT: clicks, gallop, rubs Pulses: PRESENT: normal radial pulses, normal dorsalis pedis pul Vascular exam: PRESENT: normal capillary refill. ABSENT: pallor GI/Abdominal exam: PRESENT: normal bowel sounds, soft Rectal exam: PRESENT: deferred Extremities exam: PRESENT: pedal edema - Trace pedal edema bilaterally. ABSENT: joint swelling Musculoskeletal exam: ABSENT: deformity, dislocation Neurological exam: PRESENT: altered - Stuporous, other - Confused Psychiatric exam: PRESENT: other - Stuporous and confused Skin exam: PRESENT: dry, intact, warm. ABSENT: jaundice, rash, urticaria Results Laboratory Results: 10/30/19 19:00 10/30/19 19:00 10/30/19 10/30/19 10/30/19 19:00 19:00 19:00 WBC 11.2 H RBC 3.10 L Hgb 8.1 L Hct 25.4 L MCV 82 MCH 26.3 L MCHC 32.1 RDW 23.6 H Plt Count 138 L Seg Neutrophils % 76.2 Carbonic Acid HCO3/H2CO3 Ratio ABG pH ABG pCO2 ABG pO2 ABG HCO3 ABG O2 Saturation ABG Base Excess FiO2 Sodium 138.1 Potassium 4.6 Chloride 95 L Carbon Dioxide 37 H Anion Gap 6 BUN 33 H Creatinine 2.17 H Est GFR ( Amer) 28 L Glucose 46 L Lactic Acid Calcium 8.7 Magnesium 2.7 H Total Bilirubin 0.6 AST 39 H Alkaline Phosphatase 129 H Ammonia Total Protein 7.0 Albumin 3.7 Lipase 23.2 Urine Color Urine Appearance Urine pH Ur Specific [place] Urine Protein Urine Glucose (UA) Urine Ketones Urine Blood Urine Nitrite Ur Leukocyte Esterase Urine WBC (Auto) Urine RBC (Auto) 10/30/19 10/30/19 10/30/19 19:00 20:50 21:40 WBC RBC Hgb Hct MCV MCH MCHC RDW Plt Count Seg Neutrophils % Carbonic Acid 1.62 H HCO3/H2CO3 Ratio 21:1 ABG pH 7.43 ABG pCO2 53.9 H ABG pO2 69.7 L ABG HCO3 35.3 H ABG O2 Saturation 94.2 ABG Base Excess 9.8 FiO2 3.5L Sodium Potassium Chloride Carbon Dioxide Anion Gap BUN Creatinine Est GFR ( Amer) Glucose Lactic Acid 1.1 Calcium Magnesium Total Bilirubin AST Alkaline Phosphatase Ammonia Total Protein Albumin Lipase Urine Color MEHRDAD Urine Appearance CLOUDY Urine pH 5.0 Ur Specific [place] 1.012 Urine Protein 30 H Urine Glucose (UA) NEGATIVE Urine Ketones NEGATIVE Urine Blood NEGATIVE Urine Nitrite NEGATIVE Ur Leukocyte Esterase LARGE H Urine WBC (Auto) 135 Urine RBC (Auto) 1 10/30/19 22:49 WBC RBC Hgb Hct MCV MCH MCHC RDW Plt Count Seg Neutrophils % Carbonic Acid HCO3/H2CO3 Ratio ABG pH ABG pCO2 ABG pO2 ABG HCO3 ABG O2 Saturation ABG Base Excess FiO2 Sodium Potassium Chloride Carbon Dioxide Anion Gap BUN Creatinine Est GFR ( Amer) Glucose Lactic Acid Calcium Magnesium Total Bilirubin AST Alkaline Phosphatase Ammonia < 8.7 L Total Protein Albumin Lipase Urine Color Urine Appearance Urine pH Ur Specific [place] Urine Protein Urine Glucose (UA) Urine Ketones Urine Blood Urine Nitrite Ur Leukocyte Esterase Urine WBC (Auto) Urine RBC (Auto) 10/30/19 19:00 CK-MB (CK-2) 2.42 Troponin I < 0.012 NT-Pro-B Natriuret Pep 2530 H Impressions: Chest X-Ray 10/30/19 20:42 IMPRESSION: No acute process. Stable cardiomegaly. Head CT 10/30/19 20:42 IMPRESSION: Mild atrophy and small vessel ischemic change. No acute intracranial abnormality. TECHNICAL DOCUMENTATION: Quality ID # [id number]: Final reports with documentation of one or more dose reduction techniques (e.g., Automated exposure control, adjustment of the mA and/or kV according to patient size, use of iterative reconstruction technique) copyright 2011 [employer]- All Rights Reserved Assessment and Plan - Diagnosis (1) Acute delirium Is this a current diagnosis for this admission?: Yes (2) UTI (urinary tract infection) Qualifiers: Urinary tract infection type: site unspecified Hematuria presence: without hematuria Qualified Code(s): N39.0 - Urinary tract infection, site not specified Is this a current diagnosis for this admission?: Yes (3) FELIX (acute kidney injury) Is this a current diagnosis for this admission?: Yes (4) Morbid obesity with alveolar hypoventilation Is this a current diagnosis for this admission?: Yes (5) Diabetes mellitus type 2 in obese Is this a current diagnosis for this admission?: Yes (6) Hypoglycemia associated with diabetes Is this a current diagnosis for this admission?: Yes (7) Anemia Qualifiers: Anemia type: unspecified type Qualified Code(s): D64.9 - Anemia, unspecified Is this a current diagnosis for this admission?: Yes - Plan Summary Summary: Patient will be admitted to the medical floor where she will receive routine supportive and symptomatic cares. She will initially receive IV fluid utilizing lactated Ringer's at 167 mL/h. Neuro checks will be performed every 2 hours. She will be treated with IV cefepime pending urine and blood culture results. Every 4 hours Accu-Cheks will be obtained and sliding scale insulin will be used for hyperglycemia with a hypoglycemic protocol in place. Patient will be treated with CPAP using an FiO2 of 28% and pressure setting of 8. Serial lactic acid levels will be obtained. CBCs, metabolic profiles, magnesium levels and additional laboratory and/or radiographic evaluations will be obtained as appropriate. Patient will be treated with a cardiac, prerenal and diabetic restricted diet when she is able to take oral nutrition. Anemia profile will be obtained. - Time Time Spent with patient: Less than 15 minutes Medications reviewed and adjusted accordingly: Yes Anticipated discharge: Home - Inpatient Certification Based on my medical assessment, after consideration of the patient's comorbidities, presenting symptoms, or acuity I expect that the services needed warrant INPATIENT care.: Yes I certify that my determination is in accordance with my understanding of Medicare's requirements for reasonable and necessary INPATIENT services [42 CFR 412.3e].: Yes Medical Necessity: Significant Comorbidiites Make Outpatient Treatment Too Risky, Need Close Monitoring Due to Risk of Patient Decompensation, Need For IV Fluids, Need for Neurological Checks, Need for IV Antibiotics, Risk of Complication if Not Cared For in Hospital
[2019-10-31] MEDS: INSULIN REG, HUMAN 100 UNIT/ML 3 ML VIAL (PYX) SUBCUT SCH ×5 (04:40→17:34)
[2019-10-31 04:42] LABS: ABSOLUTE RETICS # 0.112 10^6/uL (0.028-0.122); HEMATOCRIT 24.7 % (36.0-47.0); MEAN CORPUSCULAR HEMOGLOBIN 26.2 pg (27.0-33.4); MEAN CORPUSCULAR HGB CONC 32.3 g/dL (32.0-36.0); MEAN CORPUSCULAR VOLUME 81 fl (80-97); PLATELET COUNT 112 10^3/uL (150-450); RED BLOOD COUNT 3.04 10^6/uL (3.72-5.28); RED CELL DISTRIBUTION WIDTH 23.5 % (11.5-14.0); RETICULOCYTE COUNT (AUTO) 3.69 % (0.66-2.85); WHITE BLOOD COUNT 10.6 10^3/uL (4.0-10.5)
[2019-10-31 04:58] LABS: ANION GAP 5 (5-19); BLOOD UREA NITROGEN 33 mg/dL (7-20); CALCIUM 8.5 mg/dL (8.4-10.2); CARBON DIOXIDE 35 mmol/L (22-30); CHLORIDE 97 mmol/L (98-107); GLUCOSE 101 mg/dL (75-110); IRON(TIBC) 22.4 ug/dL (37-170); POTASSIUM 4.4 mmol/L (3.6-5.0); TRIGLYCERIDES 80 mg/dL (<150)
[2019-10-31 05:10] LABS: DIRECT LDL 33 mg/dL (<100)
[2019-10-31 06:09] LABS: FOLATE > 20.00 ng/mL (>2.76)
[2019-10-31] MEDS: HEPARIN SOD (PORCINE) 5,000 UNIT/ML 1 ML VIAL SUBCUT SCH ×2 (06:10→14:30)
[2019-10-31] MEDS ORDERED: NORMAL SALINE 1000 ML 1,000 ML IV PRN (08:56)
[2019-10-31] MEDS: DOCUSATE SODIUM 100 MG CAPSULE PO SCH ×2 (09:16→17:32)
[2019-10-31] MEDS ORDERED: IRON SUCROSE COMPLEX INJ/PF 100 MG/5 ML SDV IV SCH (10:00)
[2019-10-31] MEDS ORDERED: CEFEPIME 2 GM/D5W RTU 2 GM/50 ML RTUPB IV SCH (10:00)
[2019-10-31] MEDS ORDERED: PANTOPRAZOLE SODIUM 40 MG VIAL IV SCH (10:00)
[2019-10-31] MEDS ORDERED: CEFEPIME HCL 2 GM in DEXTROSE 5%-WATER 50 ML IV SCH (10:00)
[2019-10-31] MEDS ORDERED: IRON SUCROSE COMPLEX 300 MG in NORMAL SALINE 250 ML IV SCH (10:00)
[2019-10-31] MEDS ORDERED: HALOPERIDOL LACTATE INJ 5 MG/1 ML VIAL IV PRN (18:32)
[2019-10-31] MEDS ORDERED: AMITRIPTYLINE HCL 25 MG TABLET PO PRN (19:06)
--- NOTE | 2019-10-31 19:13 | PDOC PROGRESS REPORT ---
Subjective Progress Note for:: 10/31/19 Subjective:: I have discussed with patient about wearing her CPAP whenever she is sleeping as this may be contributing to patient's excessive sleepiness and delirium. Patient appeared to drift into sleep whenever being spoken to. Patient adamantly refuses to wear her CPAP machine and states that I cannot force her to do so. I have explained to her the benefits and risks but she adamantly refuses to comply with my recommendations. Reason For Visit: ACUTE DELIRIUM,ACUTE KIDNEY INJURY,URINARY TRACT Physical Exam Vital Signs: Temp Pulse Resp BP Pulse Ox 98.8 F 84 20 120/84 100 10/31/19 15:06 10/31/19 15:06 10/31/19 15:06 10/31/19 15:06 10/31/19 15:06 Intake & Output 10/30/19 10/31/19 11/01/19 06:59 06:59 06:59 Intake Total 1050 1309 Output Total 1600 Balance -550 1309 Weight 116.7 kg General appearance: PRESENT: no acute distress, obese, well-nourished. ABSENT: cooperative Neck exam: ABSENT: JVD Respiratory exam: PRESENT: clear to auscultation shena, symmetrical, unlabored. ABSENT: tachypnea, wheezes Cardiovascular exam: PRESENT: RRR, +S1, +S2. ABSENT: tachycardia GI/Abdominal exam: PRESENT: soft. ABSENT: rebound, rigid, tenderness Neurological exam: PRESENT: awake - Awake when I am speaking to have and seems to be completely understanding what I am saying but seems to drift very easily back into sleep, oriented to person, oriented to place, oriented to time. ABS ENT: alert Results Laboratory Results: 10/31/19 04:26 10/31/19 04:26 10/30/19 10/30/19 10/30/19 19:00 19:00 19:00 WBC 11.2 H RBC 3.10 L Hgb 8.1 L Hct 25.4 L MCV 82 MCH 26.3 L MCHC 32.1 RDW 23.6 H Plt Count 138 L Seg Neutrophils % 76.2 Retic Count (auto) Carbonic Acid HCO3/H2CO3 Ratio ABG pH ABG pCO2 ABG pO2 ABG HCO3 ABG O2 Saturation ABG Base Excess FiO2 Sodium 138.1 Potassium 4.6 Chloride 95 L Carbon Dioxide 37 H Anion Gap 6 BUN 33 H Creatinine 2.17 H Est GFR ( Amer) 28 L Glucose 46 L Lactic Acid Calcium 8.7 Magnesium 2.7 H Iron TIBC % Saturation Ferritin Total Bilirubin 0.6 AST 39 H Alkaline Phosphatase 129 H Ammonia Total Protein 7.0 Albumin 3.7 Triglycerides Cholesterol LDL Cholesterol Direct VLDL Cholesterol HDL Cholesterol Lipase 23.2 Vitamin B12 Folate TSH Urine Color Urine Appearance Urine pH Ur Specific [place] Urine Protein Urine Glucose (UA) Urine Ketones Urine Blood Urine Nitrite Ur Leukocyte Esterase Urine WBC (Auto) Urine RBC (Auto) 10/30/19 10/30/19 10/30/19 19:00 20:50 21:40 WBC RBC Hgb Hct MCV MCH MCHC RDW Plt Count Seg Neutrophils % Retic Count (auto) Carbonic Acid 1.62 H HCO3/H2CO3 Ratio 21:1 ABG pH 7.43 ABG pCO2 53.9 H ABG pO2 69.7 L ABG HCO3 35.3 H ABG O2 Saturation 94.2 ABG Base Excess 9.8 FiO2 3.5L Sodium Potassium Chloride Carbon Dioxide Anion Gap BUN Creatinine Est GFR ( Amer) Glucose Lactic Acid 1.1 Calcium Magnesium Iron TIBC % Saturation Ferritin Total Bilirubin AST Alkaline Phosphatase Ammonia Total Protein Albumin Triglycerides Cholesterol LDL Cholesterol Direct VLDL Cholesterol HDL Cholesterol Lipase Vitamin B12 Folate TSH Urine Color MEHRDAD Urine Appearance CLOUDY Urine pH 5.0 Ur Specific [place] 1.012 Urine Protein 30 H Urine Glucose (UA) NEGATIVE Urine Ketones NEGATIVE Urine Blood NEGATIVE Urine Nitrite NEGATIVE Ur Leukocyte Esterase LARGE H Urine WBC (Auto) 135 Urine RBC (Auto) 1 10/30/19 10/31/19 10/31/19 22:49 00:34 04:26 WBC RBC Hgb Hct MCV MCH MCHC RDW Plt Count Seg Neutrophils % Retic Count (auto) Carbonic Acid HCO3/H2CO3 Ratio ABG pH ABG pCO2 ABG pO2 ABG HCO3 ABG O2 Saturation ABG Base Excess FiO2 Sodium Potassium Chloride Carbon Dioxide Anion Gap BUN Creatinine Est GFR ( Amer) Glucose Lactic Acid 0.7 0.6 L Calcium Magnesium Iron TIBC % Saturation Ferritin Total Bilirubin AST Alkaline Phosphatase Ammonia < 8.7 L Total Protein Albumin Triglycerides Cholesterol LDL Cholesterol Direct VLDL Cholesterol HDL Cholesterol Lipase Vitamin B12 Folate TSH Urine Color Urine Appearance Urine pH Ur Specific [place] Urine Protein Urine Glucose (UA) Urine Ketones Urine Blood Urine Nitrite Ur Leukocyte Esterase Urine WBC (Auto) Urine RBC (Auto) 07/02/0910/31/19 10/31/19 04:26 04:26 04:26 WBC 10.6 H RBC 3.04 L Hgb 8.0 L Hct 24.7 L MCV 81 MCH 26.2 L MCHC 32.3 RDW 23.5 H Plt Count 112 L Seg Neutrophils % Retic Count (auto) 3.69 H Carbonic Acid HCO3/H2CO3 Ratio ABG pH ABG pCO2 ABG pO2 ABG HCO3 ABG O2 Saturation ABG Base Excess FiO2 Sodium 136.8 L Potassium 4.4 Chloride 97 L Carbon Dioxide 35 H Anion Gap 5 BUN 33 H Creatinine 1.80 H Est GFR ( Amer) 34 L Glucose 101 Lactic Acid Calcium 8.5 Magnesium 2.6 H Iron 22.4 L TIBC 309 % Saturation 7 Ferritin 125.00 Total Bilirubin AST Alkaline Phosphatase Ammonia Total Protein Albumin Triglycerides 80 Cholesterol 66.20 LDL Cholesterol Direct 33 VLDL Cholesterol 16.0 HDL Cholesterol 21 L Lipase Vitamin B12 521.0 Folate > 20.00 TSH 2.26 Urine Color Urine Appearance Urine pH Ur Specific [place] Urine Protein Urine Glucose (UA) Urine Ketones Urine Blood Urine Nitrite Ur Leukocyte Esterase Urine WBC (Auto) Urine RBC (Auto) 10/31/19 08:04 WBC RBC Hgb Hct MCV MCH MCHC RDW Plt Count Seg Neutrophils % Retic Count (auto) Carbonic Acid HCO3/H2CO3 Ratio ABG pH ABG pCO2 ABG pO2 ABG HCO3 ABG O2 Saturation ABG Base Excess FiO2 Sodium Potassium Chloride Carbon Dioxide Anion Gap BUN Creatinine Est GFR ( Amer) Glucose Lactic Acid 0.9 Calcium Magnesium Iron TIBC % Saturation Ferritin Total Bilirubin AST Alkaline Phosphatase Ammonia Total Protein Albumin Triglycerides Cholesterol LDL Cholesterol Direct VLDL Cholesterol HDL Cholesterol Lipase Vitamin B12 Folate TSH Urine Color Urine Appearance Urine pH Ur Specific [place] Urine Protein Urine Glucose (UA) Urine Ketones Urine Blood Urine Nitrite Ur Leukocyte Esterase Urine WBC (Auto) Urine RBC (Auto) 10/30/19 19:00 CK-MB (CK-2) 2.42 Troponin I < 0.012 NT-Pro-B Natriuret Pep 2530 H Impressions: Chest X-Ray 10/30/19 20:42 IMPRESSION: No acute process. Stable cardiomegaly. Head CT 10/30/19 20:42 IMPRESSION: Mild atrophy and small vessel ischemic change. No acute intracranial abnormality. TECHNICAL DOCUMENTATION: Quality ID # [id number]: Final reports with documentation of one or more dose reduction techniques (e.g., Automated exposure control, adjustment of the mA and/or kV according to patient size, use of iterative reconstruction technique) copyright 2011 [email or web address]- All Rights Reserved Assessment and Plan - Diagnosis (1) Acute delirium Is this a current diagnosis for this admission?: Yes (2) Obesity hypoventilation syndrome Is this a current diagnosis for this admission?: Yes (3) Morbid obesity with alveolar hypoventilation Is this a current diagnosis for this admission?: Yes (4) Iron deficiency anemia Is this a current diagnosis for this admission?: Yes (5) Chronic anticoagulation Is this a current diagnosis for this admission?: Yes (6) FELIX (acute kidney injury) Is this a current diagnosis for this admission?: Yes (7) Hypoglycemia associated with diabetes Is this a current diagnosis for this admission?: Yes (8) UTI (urinary tract infection) Qualifiers: Urinary tract infection type: site unspecified Hematuria presence: without hematuria Qualified Code(s): N39.0 - Urinary tract infection, site not specified Is this a current diagnosis for this admission?: Yes - Plan Summary Summary: Patient will be admitted to the medical floor where she will receive routine supportive and symptomatic cares. She will initially receive IV fluid utilizing lactated Ringer's at 167 mL/h. Neuro checks will be performed every 2 hours. She will be treated with IV cefepime pending urine and blood culture results. Every 4 hours Accu-Cheks will be obtained and sliding scale insulin will be used for hyperglycemia with a hypoglycemic protocol in place. Patient will be treated with CPAP using an FiO2 of 28% and pressure setting of 8. Serial lactic acid levels will be obtained. CBCs, metabolic profiles, magnesium levels and additional laboratory and/or radiographic evaluations will be obtained as appropriate. Patient will be treated with a cardiac, prerenal and diabetic restricted diet when she is able to take oral nutrition. Anemia profile will be obtained. 10/31/2019 Patient seems to be having hypercapnic respiratory failure which is likely chronic and secondary to obesity hypoventilation. I have tried for significantly to get the patient to wear her CPAP machine whenever she is sleeping but she has adamantly refused to use my recommendations. She very clearly tells me that she will never wear it and I cannot force her to do so. I have explained to her that I believe the hypercapnia due to poor ventilation when sleeping is very likely contributing to her excessive sleepiness and occasional confusion. I believe her delirium is exacerbated by poor sleep quality/hygiene which will be significantly improved by patient's use of NIPPV whenever sleeping. However as patient has declined to use this machine, I cannot force her to wear. I will continue to try to encourage it. Patient also notably has Eliquis in the med rec. I will confirm what this is being used to treat. In the meantime, continue cefepime for treatment of her UTI. Uncertain if she is having a true UTI and if this was actually playing a role in improving her delirium. - Time Time Spent with patient: 15-24 minutes
[2019-10-31 19:58] VITALS: BP 139/77
--- NOTE | 2019-10-31 20:21 | Left Against Medical Advice ---
Against Medical Advice Admission Date/Time: 10/30/19 23:28 Primary Care Provider: MEDINA DUNHAM MD - Diagnosis: (1) Acute delirium Is this a current diagnosis for this admission?: Yes (2) UTI (urinary tract infection) Is this a current diagnosis for this admission?: Yes (3) FELIX (acute kidney injury) Is this a current diagnosis for this admission?: Yes (4) Morbid obesity with alveolar hypoventilation Is this a current diagnosis for this admission?: Yes (5) Diabetes mellitus type 2 in obese Is this a current diagnosis for this admission?: Yes (6) Hypoglycemia associated with diabetes Is this a current diagnosis for this admission?: Yes (7) Anemia Is this a current diagnosis for this admission?: Yes - Summary: Summary: Please see Admission and Progress Notes as well. BISMARK MAURO is a 64 F, who LEFT AGAINST MEDICAL ADVICE. The Patient was admitted on 10/30/19 23:28.
[2019-10-31] MEDS ORDERED: ATORVASTATIN CALCIUM 40 MG TABLET PO SCH (22:00)
[2019-11-01] MEDS ORDERED: ASPIRIN 81 MG TABLET, ENT COATED PO SCH (10:00)
[2019-11-01] MEDS ORDERED: METOPROLOL SUCCINATE 25 MG TAB.SR.24H PO SCH (10:00)
[2019-11-01] MEDS ORDERED: FUROSEMIDE 40 MG TABLET PO SCH (10:00)
== END 2019-10-31 20:13 | disposition left against medical advice (07) | DRG 682 ==
LOC: ER 18:50 → EH 23:28 → 5 10-31 01:06
PROVIDERS: ADMIT Emergency Medicine; ATTEND Internal Medicine
PROC: 5A09357 Assistance with Respiratory Ventilation, Less than 24 Consecutive Hours, Continuous Positive Airway Pressure (ICD-10-PCS; principal; 2019-10-31)
DX: N17.9 Acute kidney failure, unspecified (principal); J96.22 Acute and chronic respiratory failure with hypercapnia; E66.2 Morbid (severe) obesity with alveolar hypoventilation; N39.0 Urinary tract infection, site not specified; E11.649 Type 2 diabetes mellitus with hypoglycemia without coma; R41.0 Disorientation, unspecified; Z53.29 Procedure and treatment not carried out because of patient's decision for other reasons; I48.91 Unspecified atrial fibrillation; I25.10 Atherosclerotic heart disease of native coronary artery without angina pectoris; E78.5 Hyperlipidemia, unspecified; I10 Essential (primary) hypertension; J45.909 Unspecified asthma, uncomplicated; K21.9 Gastro-esophageal reflux disease without esophagitis; K44.9 Diaphragmatic hernia without obstruction or gangrene; M19.012 Primary osteoarthritis, left shoulder; M17.11 Unilateral primary osteoarthritis, right knee; D50.9 Iron deficiency anemia, unspecified; Z96.659 Presence of unspecified artificial knee joint; Z87.891 Personal history of nicotine dependence; Z79.82 Long term (current) use of aspirin; Z79.4 Long term (current) use of insulin; Z79.899 Other long term (current) drug therapy; Z88.3 Allergy status to other anti-infective agents; Z91.19 Patient's noncompliance with other medical treatment and regimen; Z95.1 Presence of aortocoronary bypass graft; Z82.49 Family history of ischemic heart disease and other diseases of the circulatory system; Z83.3 Family history of diabetes mellitus
CPT/HCPCS: 36415; 36600; 70450; 71045; 80048; 80053; 80061; 80307; 81001; 82140; 82553; 82607; 82728; 82746; 82803; 82962; 83036; 83540; 83550; 83605; 83690; 83735; 83880; 84443; 84484; 85025; 85027; 85045; 85610; 87086; 87088; 87186; 93005; 93010; 94660; 96365; 96375; 99291; C9113; J0692; J0696; J1644; J1756; J3490; J7030; J7050; J7060; J7120

== ENCOUNTER 2019-11-04 12:26 | Inpatient (IN) | payer MEDICAID ==
--- NOTE | 2019-11-04 13:03 | ER Document Report ---
ED Medical Screen (RME) - General Chief Complaint: Shortness Of Breath Stated Complaint: URINARY PROBLEMS Primary Care Provider: MEDINA DUNHAM MD [Primary Care Provider] - Follow up as needed TRAVEL OUTSIDE OF THE [place] IN LAST 30 DAYS: No - HPI Notes: 11/04/19 13:00 64-year-old female with a history of insulin-dependent type 2 diabetes, CHF, COPD, A. fib presents to the emergency room via EMS for shortness of breath, pedal edema, dysuria with a nonhealing wound to her right heel that has become progressively worse over the last 3 days. Patient was admitted to the hospital for CHF exacerbation on , October 29, left on Sunday, October 30 AMA. Patient states since her symptoms are getting worse she wanted to get checked out today. Does not have a primary care provider. Denies any chest pain, headache, fever or chills, abdominal pain, lower back pain. patient states she did give herself some insulin this morning but did not check her blood sugar. I have greeted and performed a rapid initial assessment of this patient. A comprehensive ED assessment and evaluation of the patient, analysis of test results and completion of the medical decision making process will be conducted by additional ED providers. PHYSICAL EXAMINATION: GENERAL: Chronically ill, morbidly obese and in no acute distress. HEAD: Atraumatic, normocephalic. EYES: Pupils equal round extraocular movements intact, conjunctiva are normal. NECK: Normal range of motion CV: s1, s2 regular LUNGS: Diminished breath sounds in bilateral upper and lower bases - Related Data Allergies/Adverse Reactions: metronidazole [From Flagyl] Allergy (Severe, Verified 12/20/13 03:10) Rash Metronidazole HCl [From Flagyl] Allergy (Severe, Verified 12/20/13 03:10) Rash Past Medical History - Past Medical History Cardiac Medical History: Reports: Hx Atrial Fibrillation, Hx Coronary Artery Disease, Hx Hypercholesterolemia, Hx Hypertension Pulmonary Medical History: Reports: Hx Asthma, Hx Bronchitis Denies: Hx COPD, Hx Pneumonia, Hx Respiratory Failure, Hx Sleep Apnea, Hx Tuberculosis Neurological Medical History: Denies: Hx Cerebrovascular Accident, Hx Seizures Endocrine Medical History: Reports: Hx Diabetes Mellitus Type 2. Denies: Hx Diabetes Mellitus Type 1, Hx Graves' Disease, Hx Hyperthyroidism, Hx Hypothyroidism Renal/ Medical History: Denies: Hx End Stage Renal Disease, Hx Kidney Stones, Hx Peritoneal Dialysis Malignancy Medical History: Denies: Hx Lung Cancer GI Medical History: Reports: Hx Gastroesophageal Reflux Disease, Hx Hiatal Hernia, Hx Irritable Bowel. Denies: Hx Cirrhosis, Hx Crohn's Disease, Hx Hepatitis, Hx Liver Failure, Hx Pancreatitis, Hx Ulcer Musculoskeltal Medical History: Reports Hx Arthritis - Lt shoulder, Rt knee, Denies Hx Fibromyalgia, Denies Hx Gout, Denies Hx Muscular Dystrophy, Denies Hx Systemic Lupus Erythematosus Skin Medical History: Denies Hx Eczema Psychiatric Medical History: Denies: Hx Bipolar Disorder, Hx Depression, Hx Post Traumatic Stress Disorder, Hx Schizophrenia Traumatic Medical History: Reports: Hx Fractures - Rt pinky finger Infectious Medical History: Denies: Hx Hepatitis Past Surgical History: Reports: Hx Appendectomy, Hx Cardiac Surgery - Triple Bypass 2019, Hx Cholecystectomy, Hx Orthopedic Surgery - Arthroscopic surgery of the left knee, Hx Tubal Ligation. Denies: Hx Bowel Surgery, Hx Section, Hx Colostomy, Hx Coronary Artery Bypass Graft, Hx Gastric Bypass Surgery, Hx Herniorrhaphy, Hx Hysterectomy, Hx Mastectomy, Hx Pacemaker. Comment Only: Hx Tonsillectomy - unsure - Immunizations Hx Diphtheria, Pertussis, Tetanus Vaccination: Yes Doctor's Discharge - Discharge Referrals: MEDINA DUNHAM MD [Primary Care Provider] - Follow up as needed
--- NOTE | 2019-11-04 13:51 | RADIOLOGY REPORT (SQ) ---
EXAM DESCRIPTION: CHEST 2 VIEWS IMAGES COMPLETED DATE/TIME: 11/04/2019 1:34 pm REASON FOR STUDY: sob hx of chf COMPARISON: 10/30/2019 EXAM PARAMETERS: NUMBER OF VIEWS: two views TECHNIQUE: Digital Frontal and Lateral radiographic views of the chest acquired. RADIATION DOSE: NA LIMITATIONS: none FINDINGS: LUNGS AND PLEURA: No opacities, masses or pneumothorax. No pleural effusion. MEDIASTINUM AND HILAR STRUCTURES: No masses or contour abnormalities. HEART AND VASCULAR STRUCTURES: Heart normal size. No evidence for failure. BONES: No acute findings. HARDWARE: CABG. OTHER: No other significant finding. IMPRESSION: NO ACUTE RADIOGRAPHIC FINDING IN THE CHEST. TECHNICAL DOCUMENTATION: JOB ID: [id number] 2010 [employer]- All Rights Reserved Reading location - IP/workstation name: [email or web address]
[2019-11-04 14:21] LABS: ABSOLUTE BASOPHILS # (AUTO) 0.1 10^3/uL (0.0-0.2); ABSOLUTE EOSINOPHILS # (AUTO) 0.5 10^3/uL (0.0-0.6); ABSOLUTE MONOCYTES (AUTO) 0.6 10^3/uL (0.1-1.4); ABSOLUTE NEUT (AUTO) 5.1 10^3/uL (1.7-8.2); BASOPHILS % (AUTO) 0.9 % (0-2); EOSINOPHILS % (AUTO) 5.9 % (0-6); HEMATOCRIT 27.6 % (36.0-47.0); HEMOGLOBIN 8.8 g/dL (12.0-15.5); LYMPHOCYTES % (AUTO) 24.1 % (13-45); MEAN CORPUSCULAR HEMOGLOBIN 26.8 pg (27.0-33.4); MEAN CORPUSCULAR VOLUME 84 fl (80-97); MONOCYTES % (AUTO) 7.2 % (3-13); PLATELET COUNT 120 10^3/uL (150-450); RED CELL DISTRIBUTION WIDTH 24.6 % (11.5-14.0); SEGMENTED NEUTROPHILS % (AUTO) 61.9 % (42-78); TOTAL CELLS COUNTED % (AUTO) 100 %; WHITE BLOOD COUNT 8.3 10^3/uL (4.0-10.5)
--- NOTE | 2019-11-04 14:24 | EKG REPORT ---
SEVERITY:- NORMAL ECG - SINUS RHYTHM : Confirmed by: Rubio Liang MD 04-Nov-2019 14:24:21
[2019-11-04 14:27] LABS: ALBUMIN 3.7 g/dL (3.5-5.0); ALKALINE PHOSPHATASE 105 U/L (38-126); ASPARTATE AMINO TRANSFERASE 36 U/L (14-36); BILIRUBIN,TOTAL 0.6 mg/dL (0.2-1.3); BLOOD UREA NITROGEN 25 mg/dL (7-20); CALCIUM 8.8 mg/dL (8.4-10.2); POTASSIUM 4.1 mmol/L (3.6-5.0); TOTAL PROTEIN 7.1 g/dL (6.3-8.2)
[2019-11-04 14:32] LABS: GLUCOSE 53 mg/dL (75-110)
[2019-11-04 14:33] LABS: CARBON DIOXIDE 39 mmol/L (22-30); CHLORIDE 98 mmol/L (98-107)
[2019-11-04 14:38] LABS: NT PRO BNP 2160 pg/mL (<125)
[2019-11-04 14:42] LABS: ANISOCYTOSIS 3+; OVALOCYTES 1+; POIKILOCYTOSIS 2+; STOMATOCYTES SLIGHT; TOXIC GRANULATION SLIGHT
[2019-11-04 14:43] LABS: PLATELET COMMENT DECREASED; TEAR DROP CELLS SLIGHT
[2019-11-04 14:49] LABS: ANION GAP 4 (5-19); TROPONIN I < 0.012 ng/mL
[2019-11-04 17:19] LABS: AMORPHOUS SEDIMENT,URINE TRACE /HPF; APPEARANCE,URINE CLOUDY; BILIRUBIN,URINE NEGATIVE (NEGATIVE); COLOR,URINE YELLOW; GLUCOSE, URINE NEGATIVE (NEGATIVE); KETONES,URINE NEGATIVE (NEGATIVE); LEUKOCYTE ESTERASE,URINE LARGE (NEGATIVE); NITRITE,URINE NEGATIVE (NEGATIVE); PROTEIN,URINE NEGATIVE (NEGATIVE); URINE SPECIFIC GRAVITY 1.012; UROBILINOGEN,URINE NEGATIVE mg/dL (<2.0)
[2019-11-04] MEDS ORDERED: DAPTOMYCIN INJ 500 MG VIAL IV ONE (18:51)
[2019-11-04 20:48] LABS: ARTERIAL BLOOD BASE EXCESS 9.7 mmol/L; ARTERIAL BLOOD H2CO3 1.81 mmol/L (1.05-1.35); ARTERIAL BLOOD O2 SATURATION 98.4 % (94-98); ARTERIAL BLOOD PCO2 60.1 mmHg (35-45); ARTERIAL BLOOD PO2 124.4 mmHg (80-100); ARTERIAL BLOOD TOTAL CO2 37.8 mmol/L (21-25)
[2019-11-04 20:50] LABS: ARTERIAL BLOOD FIO2 2L
--- NOTE | 2019-11-04 21:15 | ER Document Report ---
ED General - General Chief Complaint: Shortness Of Breath Stated Complaint: URINARY PROBLEMS Time Seen by Provider: 11/04/19 16:46 Primary Care Provider: MEDINA DUNHAM MD [Primary Care Provider] - Follow up as needed TRAVEL OUTSIDE OF THE [place] IN LAST 30 DAYS: No - HPI Notes: Patient is a 64-year-old female who presents to the emergency department for evaluation. Her is a primary historian. The patient was admitted to the hospital last week with altered mental status and UTI. She left the hospital AGAINST MEDICAL ADVICE. While she was at home, she does not on any antibiotics. Evidently she has been increasingly confused over the last 48 hours. She started having shaking chills earlier tonight. No darnell fevers to their knowledge. Decreased p.o. intake. She has been complaining of some shortness of breath. She denies any pain. - Related Data Allergies/Adverse Reactions: metronidazole [From Flagyl] Allergy (Severe, Verified 12/20/13 03:10) Rash Metronidazole HCl [From Flagyl] Allergy (Severe, Verified 12/20/13 03:10) Rash Past Medical History - General Information source: Patient, Relative - Social History Smoking Status: Former Smoker Family History: Reviewed & Not Pertinent Patient has homicidal ideation: No - Past Medical History Cardiac Medical History: Reports: Hx Atrial Fibrillation, Hx Coronary Artery Disease, Hx Hypercholesterolemia, Hx Hypertension Pulmonary Medical History: Reports: Hx Asthma, Hx Bronchitis Denies: Hx COPD, Hx Pneumonia, Hx Respiratory Failure, Hx Sleep Apnea, Hx Tuberculosis Neurological Medical History: Denies: Hx Cerebrovascular Accident, Hx Seizures Endocrine Medical History: Reports: Hx Diabetes Mellitus Type 2. Denies: Hx Diabetes Mellitus Type 1, Hx Graves' Disease, Hx Hyperthyroidism, Hx Hypothyroidism Renal/ Medical History: Denies: Hx End Stage Renal Disease, Hx Kidney Stones, Hx Peritoneal Dialysis Malignancy Medical History: Denies: Hx Lung Cancer GI Medical History: Reports: Hx Gastroesophageal Reflux Disease, Hx Hiatal Hernia, Hx Irritable Bowel. Denies: Hx Cirrhosis, Hx Crohn's Disease, Hx Hepatitis, Hx Liver Failure, Hx Pancreatitis, Hx Ulcer Musculoskeletal Medical History: Reports Hx Arthritis - Lt shoulder, Rt knee, Denies Hx Fibromyalgia, Denies Hx Gout, Denies Hx Muscular Dystrophy, Denies Hx Systemic Lupus Erythematosus Skin Medical History: Denies Hx Eczema Psychiatric Medical History: Denies: Hx Bipolar Disorder, Hx Depression, Hx Post Traumatic Stress Disorder, Hx Schizophrenia Traumatic Medical History: Reports: Hx Fractures - Rt pinky finger Infectious Medical History: Denies: Hx Hepatitis Past Surgical History: Reports: Hx Appendectomy, Hx Cardiac Surgery - Triple Bypass 2019, Hx Cholecystectomy, Hx Orthopedic Surgery - Arthroscopic surgery of the left knee, Hx Tubal Ligation. Denies: Hx Bowel Surgery, Hx Section, Hx Colostomy, Hx Coronary Artery Bypass Graft, Hx Gastric Bypass Surgery, Hx Herniorrhaphy, Hx Hysterectomy, Hx Mastectomy, Hx Pacemaker. Comment Only: Hx Tonsillectomy - unsure - Immunizations Hx Diphtheria, Pertussis, Tetanus Vaccination: Yes Review of Systems - Review of Systems Constitutional: Chills, Weakness Neurological/Psychological: See HPI -: Yes All other systems reviewed and negative Physical Exam - Vital signs Vitals: Temp Pulse Resp BP Pulse Ox 98.5 F 88 20 116/66 96 11/04/19 12:35 11/04/19 12:35 11/04/19 12:35 11/04/19 12:35 11/04/19 12:35 - Notes Notes: This is a 64-year-old female who appears her stated age. She is lying in the bed, drowsy, wakes to verbal stimulus. She has intermittent dysarthria. Vital signs reviewed, please refer to chart. Head is normocephalic, atraumatic. Pupils equal round, reactive to light. Neck is supple without meningismus. Heart is regular rate and rhythm. Lungs are clear to auscultation bilaterally. Abdomen is obese, nontender, normoactive bowel sounds throughout. Extremities without cyanosis, clubbing. Posterior calves are nontender. Peripheral pulses are equal. Skin is warm and dry. Patient is drowsy but awakes to verbal stimuli. GCS of 13. She is oriented to place and person, disoriented to time. She intermittently falls asleep but has no gross facial asymmetry. She moves all 4 extremities spontaneously. She follows commands intermittently. Course - Re-evaluation Re-evalutation: 11/04/19 21:17 Patient presents to the emergency department for evaluation. Laboratory investigations and imaging were obtained through triage. Patient is doubly confused. She was recently admitted to the hospital with similar symptoms. Her urine does continue to show mild signs of infection. I looked at her recent urine culture and daptomycin was administered. She continues to have dysarthria and confusion, ABG was ordered. Her PCO2 has risen since her last visit. Patient was noncompliant with BiPAP at her last visit. I did discuss this with her any increased risks of respiratory arrest and with CO2 narcosis. She voiced understanding and is willing to wear the BiPAP tonight. Order will be placed. Given her UTI, altered mental status, CO2 retention, I will contact medicine for admission. 11/04/19 22:[address] Lynn, he will admit the patient for further care. - Vital Signs Vital signs: Temp Pulse Resp BP Pulse Ox 98.6 F 87 18 120/68 98 11/04/19 20:56 11/04/19 20:56 11/04/19 20:56 11/04/19 20:56 11/04/19 20:56 - Laboratory Result Diagrams: 11/04/19 13:45 11/04/19 13:45 Laboratory results interpreted by me: 11/04/19 11/04/19 11/04/19 13:45 13:45 13:45 RBC 3.30 L Hgb 8.8 L Hct 27.6 L MCH 26.8 L RDW 24.6 H Plt Count 120 L Carbonic Acid ABG pCO2 ABG pO2 ABG HCO3 ABG Total CO2 ABG O2 Saturation Carbon Dioxide 39 H Anion Gap 4 L BUN 25 H Creatinine 1.44 H Est GFR ( Amer) 44 L Est GFR (MDRD) Non-Af 37 L Glucose 53 L NT-Pro-B Natriuret Pep 2160 H Ur Leukocyte Esterase Urine Ascorbic Acid 11/04/19 11/04/19 17:04 20:17 RBC Hgb Hct MCH RDW Plt Count Carbonic Acid 1.81 H ABG pCO2 60.1 H ABG pO2 124.4 H ABG HCO3 36.0 H ABG Total CO2 37.8 H ABG O2 Saturation 98.4 H Carbon Dioxide Anion Gap BUN Creatinine Est GFR ( Amer) Est GFR (MDRD) Non-Af Glucose NT-Pro-B Natriuret Pep Ur Leukocyte Esterase LARGE H Urine Ascorbic Acid 40 H - Diagnostic Test Radiology reviewed: Reports reviewed Radiology results interpreted by me: 11/04/19 21:19 Chest X-Ray 11/04/19 12:58 IMPRESSION: NO ACUTE RADIOGRAPHIC FINDING IN THE CHEST. - EKG Interpretation by Me Additional EKG results interpreted by me: 11/04/19 21:19 Sinus mechanism with a rate of 75 bpm. Normal axis. First-degree AV block. No acute ST changes concerning for ischemia or infarction. Discharge - Discharge Clinical Impression: UTI (urinary tract infection) Qualifiers: Urinary tract infection type: site unspecified Hematuria presence: without hematuria Qualified Code(s): N39.0 - Urinary tract infection, site not specified Altered mental status Qualifiers: Coma depth: Silver coma 13-15 Hypercapnic respiratory failure Qualifiers: Chronicity: acute on chronic Qualified Code(s): J96.22 - Acute and chronic respiratory failure with hypercapnia Condition: Stable Disposition: ADMITTED INPATIENT Admitting Provider: Shane (Hospitalist) Unit Admitted: Medical Floor Referrals: MEDINA DUNHAM MD [Primary Care Provider] - Follow up as needed
[2019-11-04] MEDS ORDERED: DAPTOMYCIN 500 MG in NORMAL SALINE 50 ML IV ONE (21:30)
[2019-11-04] MEDS ORDERED: ONDANSETRON HCL INJ/PF 4 MG/2 ML SDV IV PRN (22:00)
[2019-11-04] MEDS ORDERED: ACETAMINOPHEN 325 MG TABLET PO PRN (22:00)
--- NOTE | 2019-11-04 22:41 | PDOC H&P ---
History of Present Illness Admission Date/PCP: MEDINA DNUHAM MD History of Present Illness: BISMARK MAURO is a 64 year old female with a history of SVT on chronic anticoagulation, chronic hypoxemic respiratory failure, chronic pain on chronic opiates, asthma, morbid obesity, hyperlipidemia, and insulin-dependent diabetes mellitus who left this hospital AGAINST MEDICAL ADVICE 4 days ago. At that time she had been admitted with a possible UTI and metabolic encephalopathy with an elevated PCO2 on her blood gas. She has been documented to be chronically noncompliant and during her last hospitalization it was recommended that she use a BiPAP mask to help improve her ventilation and reduce her PCO2. However, she refused and left AGAINST MEDICAL ADVICE as previously noted. She is back in today with a similar presentation to her previous hospitalization. She is noted to be encephalopathic at home by her significant other. She has not had any fevers. No abdominal pain, nausea, vomiting, or diarrhea. She has continued to take all of her medications. She also has a large open blister on the posterior aspect of her right heel where her knee immobilizer that she was wearing on the right with slipped down and rub the back of her foot. It is open and needs some local wound care but it does not appear infected. When told she will have to wear a BiPAP mask because her PCO2 is elevated she begins crying and wailing and moaning saying that she cannot do it. Her creatinine is still a little bit elevated and it was a little elevated the last time she was here. She has no dysuria but urinalysis was again suggestive of UTI. Past Medical History Cardiac Medical History: Reports: Atrial Fibrillation, Coronary Artery Disease, Hyperlipidema, Hypertension Pulmonary Medical History: Reports: Asthma, Bronchitis Denies: Chronic Obstructive Pulmonary Disease (COPD), Pneumonia, Respiratory Failure, Sleep Apnea, Tuberculosis Neurological Medical History: Denies: Seizures Endocrine Medical History: Reports: Diabetes Mellitus Type 2 Denies: Diabetes Mellitus Type 1, Hyperthyroidism, Hypothyroidism Renal/ Medical History: Denies: End Stage Renal Disease Malignancy Medical History: Denies: Lung Cancer GI Medical History: Reports: Gastroesophageal Reflux Disease, Hiatal Hernia Denies: Cirrhosis, Crohn's Disease, Hepatitis Musculoskeltal Medical History: Reports: Arthritis - Lt shoulder, Rt knee Denies: Fibromyalgia, Gout Skin Medical History: Denies: Eczema Psychiatric Medical History: Denies: Bipolar Disorder, Depression, Post Traumatic Stress Disorder Hematology: Denies: Anemia, Bleeding Tendencies Past Surgical History Past Surgical History: Reports: Appendectomy, Cholecystectomy, Orthopedic Surgery - Arthroscopic surgery of the left knee, Tubal Ligation Denies: Amputation, Section, Colostomy, Coronary Artery Bypass Graft, Gastric Bypass Surgery, Herniorrhaphy, Hysterectomy, Mastectomy, Pac emaker Comment Only: Tonsillectomy - unsure Social History Smoking Status: Former Smoker Frequency of Alcohol Use: None Hx Recreational Drug Use: No Drugs: None Hx Prescription Drug Abuse: No Family History Family History: Reviewed & Not Pertinent Parental Family History Reviewed: No - Unable to obtain Children Family History Reviewed: No - Unable to obtain Sibling(s) Family History Reviewed.: No - Unable to obtain Medication/Allergy Home Medications: Aspirin [Aspirin EC] 81 mg PO DAILY 12/20/13 Insulin Aspart [Novolog Flexpen] 15 unit SUBCUT TID 12/20/13 Insulin Glargine,Hum.rec.anlog [Lantus Insulin Inj 300 Unit/3 ml Pen] 60 unit SUBCUT DAILY 12/20/13 Amitriptyline HCl [Elavil 25 mg Tablet] 50 mg PO HSP PRN 10/31/19 Apixaban [Eliquis 5 mg Tablet] 5 mg PO BID 10/31/19 Atorvastatin Calcium [Lipitor 40 mg Tablet] 40 mg PO QHS 10/31/19 Cholecalciferol (Vitamin D3) [Vitamin D3] 125 mcg PO DAILY 10/31/19 Furosemide [Lasix 40 mg Tablet] 40 mg PO BID 10/31/19 Magnesium Oxide [Magnesium] 400 mg PO BID 10/31/19 Metoprolol Succinate [Toprol Xl 25 mg Tab.sr] 25 mg PO DAILY 10/31/19 Omeprazole 40 mg PO DAILY 10/31/19 Oxycodone HCl/Acetaminophen [Oxycodone-Acetaminophen 10-325] 1 each PO TIDP PRN 10/31/19 Potassium Chloride 20 meq PO DAILY 10/31/19 Pregabalin 200 mg PO TID 10/31/19 Tapentadol HCl [Nucynta ER] 100 mg PO BID 10/31/19 Tiotropium [place] [Spiriva Respimat] 2 spray IH DAILY 10/31/19 Allergies/Adverse Reactions: metronidazole [From Flagyl] Allergy (Severe, Verified 12/20/13 03:10) Rash Metronidazole HCl [From Flagyl] Allergy (Severe, Verified 12/20/13 03:10) Rash Review of Systems ROS unobtainable: Due to mental status Physical Exam Vital Signs: Temp Pulse Resp BP Pulse Ox 98.6 F 87 18 120/68 98 11/04/19 20:56 11/04/19 20:56 11/04/19 20:56 11/04/19 20:56 11/04/19 20:56 Intake & Output 11/03/19 11/04/19 11/05/19 06:59 06:59 06:59 Weight 128.82 kg General appearance: PRESENT: cooperative, disheveled, mild distress, morbidly obese Head exam: PRESENT: atraumatic, normocephalic Eye exam: PRESENT: EOMI, PERRLA. ABSENT: conjunctival injection, nystagmus, scleral icterus Ear exam: PRESENT: normal external ear exam Mouth exam: PRESENT: dry mucosa, neck supple Throat exam: ABSENT: post pharyngeal erythema Neck exam: PRESENT: full ROM. ABSENT: carotid bruit, JVD, lymphadenopathy, meningismus, tenderness, thyromegaly Respiratory exam: PRESENT: clear to auscultation shena, symmetrical, unlabored. ABSENT: accessory muscle use, chest wall tenderness, crackles, prolonged expi ratory phas, rhonchi, tachypnea, wheezes Cardiovascular exam: PRESENT: RRR, +S1, +S2 Pulses: PRESENT: normal carotid pulses Vascular exam: PRESENT: normal capillary refill GI/Abdominal exam: PRESENT: normal bowel sounds, soft. ABSENT: distended, guarding, rebound, tenderness Extremities exam: PRESENT: other - She has a large area on the posterior aspect of the right heel which appears to be a superficial blister that has partially opened, there is minimal surrounding erythema without exudates. ABSENT: clubbing, pedal edema Musculoskeletal exam: PRESENT: normal inspection. ABSENT: deformity Neurological exam: PRESENT: awake, oriented to person, oriented to place, CN II- XII grossly intact. ABSENT: motor sensory deficit Psychiatric exam: PRESENT: agitated Skin exam: PRESENT: dry, warm, other - Area on right heel as previously noted Results Laboratory Results: 11/04/19 13:45 11/04/19 13:45 11/04/19 11/04/19 11/04/19 13:45 13:45 13:45 WBC 8.3 RBC 3.30 L Hgb 8.8 L Hct 27.6 L MCV 84 MCH 26.8 L MCHC 32.0 RDW 24.6 H Plt Count 120 L Seg Neutrophils % 61.9 Carbonic Acid HCO3/H2CO3 Ratio ABG pH ABG pCO2 ABG pO2 ABG HCO3 ABG O2 Saturation ABG Base Excess FiO2 Sodium 140.9 Potassium 4.1 Chloride 98 Carbon Dioxide 39 H Anion Gap 4 L BUN 25 H Creatinine 1.44 H Est GFR ( Amer) 44 L Glucose 53 L Lactic Acid 0.7 Calcium 8.8 Total Bilirubin 0.6 AST 36 Alkaline Phosphatase 105 Total Protein 7.1 Albumin 3.7 Urine Color Urine Appearance Urine pH Ur Specific Frederic Urine Protein Urine Glucose (UA) Urine Ketones Urine Blood Urine Nitrite Ur Leukocyte Esterase Urine WBC (Auto) Urine RBC (Auto) 11/04/19 11/04/19 17:04 20:17 WBC RBC Hgb Hct MCV MCH MCHC RDW Plt Count Seg Neutrophils % Carbonic Acid 1.81 H HCO3/H2CO3 Ratio 19:1 ABG pH 7.40 ABG pCO2 60.1 H ABG pO2 124.4 H ABG HCO3 36.0 H ABG O2 Saturation 98.4 H ABG Base Excess 9.7 FiO2 2L Sodium Potassium Chloride Carbon Dioxide Anion Gap BUN Creatinine Est GFR ( Amer) Glucose Lactic Acid Calcium Total Bilirubin AST Alkaline Phosphatase Total Protein Albumin Urine Color YELLOW Urine Appearance CLOUDY Urine pH 6.0 Ur Specific Frederic 1.012 Urine Protein NEGATIVE Urine Glucose (UA) NEGATIVE Urine Ketones NEGATIVE Urine Blood NEGATIVE Urine Nitrite NEGATIVE Ur Leukocyte Esterase LARGE H Urine WBC (Auto) 63 Urine RBC (Auto) 1 11/04/19 13:45 Troponin I < 0.012 NT-Pro-B Natriuret Pep 2160 H Impressions: Chest X-Ray 11/04/19 12:58 IMPRESSION: NO ACUTE RADIOGRAPHIC FINDING IN THE CHEST. Assessment and Plan - Diagnosis (1) Hypercapnic respiratory failure Qualifiers: Chronicity: acute on chronic Qualified Code(s): J96.22 - Acute and chronic respiratory failure with hypercapnia Is this a current diagnosis for this admission?: Yes Plan: We have ordered BiPAP but based on how she was acting in the ER she will likely try to refuse it. When she was here last time her PCO2 was 53 and this time it was 60. I suspect that this is from a combination of factors. She has asthma, but it seems to be fairly well controlled. She does have obesity hypoventilation syndrome and is chronically on oxygen. She is also on substantially large doses of narcotics, which coupled with her obesity hypoventilation syndrome is a set up for hypercapnic respiratory failure. I discussed this at length with her significant other. (2) Metabolic encephalopathy Is this a current diagnosis for this admission?: Yes Plan: Secondary to hypercapnic respiratory failure. BiPAP as previously noted. She also possibly has a urinary tract infection, but what role if any this is playing I am not sure. (3) Chronic prescription opiate use Is this a current diagnosis for this admission?: Yes Plan: Narcotics on hold for now due to hypercapnic respiratory failure and encephalopathy. (4) UTI (urinary tract infection) Qualifiers: Urinary tract infection type: acute cystitis Hematuria presence: without hematuria Qualified Code(s): N30.00 - Acute cystitis without hematuria Is this a current diagnosis for this admission?: Yes Plan: Urinalysis was positive last time for a pansensitive Enterococcus faecalis. She got a dose of daptomycin in the ER. We will treat her with ampicillin. (5) FELIX (acute kidney injury) Is this a current diagnosis for this admission?: Yes Plan: Creatinine is a little bit better than when she left 4 days ago but is still little bit elevated so we will put her on some IV fluids and monitor her urine output. (6) Chronic anticoagulation Is this a current diagnosis for this admission?: Yes Plan: Continue Eliquis (7) Diabetes mellitus type 2 in obese Is this a current diagnosis for this admission?: Yes Plan: She is on an insulin regimen at home that we will resume. Accu-Cheks AC and at bedtime. (8) Morbid obesity with alveolar hypoventilation Is this a current diagnosis for this admission?: Yes Plan: Strongly encourage lifestyle modification. Discussed the need for judicious use of sedating medications considering her tendency to retain carbon dioxide, but I am sure this is a discussion that will have to be revisited again prior to discharge. (9) Obesity hypoventilation syndrome Is this a current diagnosis for this admission?: Yes Plan: Strongly encourage lifestyle modification. We will encourage incentive spirometry when her mental status improves. - Time Time Spent with patient: 25-34 minutes - Inpatient Certification Based on my medical assessment, after consideration of the patient's comorbidities, presenting symptoms, or acuity I expect that the services needed warrant INPATIENT care.: Yes I certify that my determination is in accordance with my understanding of Medicare's requirements for reasonable and necessary INPATIENT services [42 CFR 412.3e].: Yes Medical Necessity: Significant Comorbidiites Make Outpatient Treatment Too Risky, Need Close Monitoring Due to Risk of Patient Decompensation, Need For IV Fluids, Need For Continuous Telemetry Monitoring, Need for IV Antibiotics, Risk of Complication if Not Cared For in Hospital
[2019-11-05] MEDS ORDERED: AMPICILLIN SODIUM 2 GM in NORMAL SALINE 100 ML IV SCH ×2
[2019-11-05] MEDS: NORMAL SALINE 1000 ML 1,000 ML IV PRN ×2 (01:30→16:31)
[2019-11-05] MEDS ORDERED: AMPICILLIN SOD INJ 2 GM VIAL ONE (03:09)
[2019-11-05] MEDS: AMPICILLIN SODIUM 2 GM in NORMAL SALINE 100 ML IV SCH ×4 (03:34→21:19)
[2019-11-05 07:03] LABS: HEMATOCRIT 25.7 % (36.0-47.0); HEMOGLOBIN 8.2 g/dL (12.0-15.5); MEAN CORPUSCULAR HGB CONC 31.7 g/dL (32.0-36.0); MEAN CORPUSCULAR VOLUME 82 fl (80-97); PLATELET COUNT 118 10^3/uL (150-450); RED BLOOD COUNT 3.14 10^6/uL (3.72-5.28); RED CELL DISTRIBUTION WIDTH 24.6 % (11.5-14.0); WHITE BLOOD COUNT 8.5 10^3/uL (4.0-10.5)
[2019-11-05 07:13] LABS: ARTERIAL BLOOD BASE EXCESS 13.3 mmol/L; ARTERIAL BLOOD H2CO3 1.56 mmol/L (1.05-1.35); ARTERIAL BLOOD HCO3 38.1 mmol/L (20-24); ARTERIAL BLOOD O2 SATURATION 92.4 % (94-98); ARTERIAL BLOOD PCO2 51.9 mmHg (35-45); ARTERIAL BLOOD PH 7.48 (7.35-7.45); ARTERIAL BLOOD PO2 60.5 mmHg (80-100); ARTERIAL BLOOD TOTAL CO2 39.7 mmol/L (21-25)
[2019-11-05 07:15] LABS: ARTERIAL BLOOD FIO2 2L
[2019-11-05 07:19] LABS: BLOOD UREA NITROGEN 24 mg/dL (7-20); CALCIUM 8.9 mg/dL (8.4-10.2)
[2019-11-05 07:25] LABS: CARBON DIOXIDE 37 mmol/L (22-30); CHLORIDE 100 mmol/L (98-107)
[2019-11-05 07:49] LABS: ANION GAP 4 (5-19)
[2019-11-05 07:50] LABS: GLUCOSE 63 mg/dL (75-110)
[2019-11-05] MEDS ORDERED: DEXTROSE 40% GEL 15 GM TUBE PO PRN ×2 (15:17)
[2019-11-05] MEDS ORDERED: GLUCAGON,HUMAN RECOMB 1 MG INJ IM PRN (15:17)
[2019-11-05] MEDS ORDERED: DEXTROSE 50%-WATER 25 GM/50 ML DISP.SYRIN IV PRN ×2 (15:17)
--- NOTE | 2019-11-05 15:35 | PDOC PROGRESS REPORT ---
Subjective Progress Note for:: 11/05/19 Reason For Visit: ACUTE HYPERCAPNEIC RESPIRATORY FAILURE, METABOLIC Physical Exam Vital Signs: Temp Pulse Resp BP Pulse Ox 97.9 F 94 19 139/58 H 92 11/05/19 08:38 11/05/19 14:00 11/05/19 08:38 11/05/19 08:38 11/05/19 10:25 Intake & Output 11/04/19 11/05/19 11/06/19 06:59 06:59 06:59 Intake Total 150 717 Balance 150 717 Weight 115.6 kg General appearance: PRESENT: no acute distress, cooperative Neck exam: ABSENT: JVD Respiratory exam: PRESENT: clear to auscultation shena, symmetrical, unlabored. ABSENT: tachypnea, wheezes Cardiovascular exam: PRESENT: RRR, +S1, +S2. ABSENT: tachycardia GI/Abdominal exam: PRESENT: soft. ABSENT: rebound, rigid, tenderness Neurological exam: PRESENT: alert, awake, oriented to person, oriented to place, oriented to time, oriented to situation Results Laboratory Results: 11/05/19 06:20 11/05/19 06:20 11/04/19 11/04/19 11/05/19 17:04 20:17 06:17 WBC RBC Hgb Hct MCV MCH MCHC RDW Plt Count Carbonic Acid 1.81 H 1.56 H HCO3/H2CO3 Ratio 19:1 24:1 ABG pH 7.40 7.48 H ABG pCO2 60.1 H 51.9 H ABG pO2 124.4 H 60.5 L ABG HCO3 36.0 H 38.1 H ABG O2 Saturation 98.4 H 92.4 L ABG Base Excess 9.7 13.3 FiO2 2L 2L Sodium Potassium Chloride Carbon Dioxide Anion Gap BUN Creatinine Est GFR ( Amer) Glucose Calcium Urine Color YELLOW Urine Appearance CLOUDY Urine pH 6.0 Ur Specific [place] 1.012 Urine Protein NEGATIVE Urine Glucose (UA) NEGATIVE Urine Ketones NEGATIVE Urine Blood NEGATIVE Urine Nitrite NEGATIVE Ur Leukocyte Esterase LARGE H Urine WBC (Auto) 63 Urine RBC (Auto) 1 11/05/19 11/05/19 06:20 06:20 WBC 8.5 RBC 3.14 L Hgb 8.2 L Hct 25.7 L MCV 82 MCH 26.0 L MCHC 31.7 L RDW 24.6 H Plt Count 118 L Carbonic Acid HCO3/H2CO3 Ratio ABG pH ABG pCO2 ABG pO2 ABG HCO3 ABG O2 Saturation ABG Base Excess FiO2 Sodium 141.0 Potassium 4.0 Chloride 100 Carbon Dioxide 37 H Anion Gap 4 L BUN 24 H Creatinine 1.27 H Est GFR ( Amer) 51 L Glucose 63 L Calcium 8.9 Urine Color Urine Appearance Urine pH Ur Specific [place] Urine Protein Urine Glucose (UA) Urine Ketones Urine Blood Urine Nitrite Ur Leukocyte Esterase Urine WBC (Auto) Urine RBC (Auto) 11/04/19 13:45 Troponin I < 0.012 NT-Pro-B Natriuret Pep 2160 H Impressions: Chest X-Ray 11/04/19 12:58 IMPRESSION: NO ACUTE RADIOGRAPHIC FINDING IN THE CHEST. Assessment and Plan - Diagnosis (1) Hypercapnic respiratory failure Qualifiers: Chronicity: acute on chronic Qualified Code(s): J96.22 - Acute and chronic respiratory failure with hypercapnia Is this a current diagnosis for this admission?: Yes Plan: This has become a recurrent issue for patient leading to frequent episodes of metabolic encephalopathy from CO2 narcosis and oversedation. PCO2 on this admission was 60. This morning, patient is completely alert and oriented and appears a lot better. Seems she was on the BiPAP overnight. She does have a strong history of noncompliance with NIPPV and on multiple locations, we have had to [place] to convince patient to put on her mask. I discussed directly with patient's oven tender Dr. Camarena at [facility] pulmonology who states that they did a sleep study which was negative for ULICES surprisingly and that the main problem with her recurrent hypercapnic respir atory failure is a loss of respiratory drive from her sedating medications. He states that on multiple admissions, she does very well once sedative medications are stopped but when she gets home she resumed these medications and ends up in the hospital again. He recommends de-escalation of sedative meds as goal of treatment. (2) Metabolic encephalopathy Is this a current diagnosis for this admission?: Yes Plan: Secondary to hypercapnic respiratory failure and oversedation from her medications. Continue BiPAP. I have discontinued patient's narcotic. I will put her on a much smaller dose of her Lyrica 75 mg 3 times daily. Apparently she takes as high as 200 mg 3 times daily of Lyrica at home. (3) Chronic prescription opiate use Is this a current diagnosis for this admission?: Yes Plan: Narcotics on hold for now due to hypercapnic respiratory failure and encephalopathy. Will visit other means for pain control. (4) UTI (urinary tract infection) Qualifiers: Urinary tract infection type: acute cystitis Hematuria presence: without hematuria Qualified Code(s): N30.00 - Acute cystitis without hematuria Is this a current diagnosis for this admission?: Yes Plan: Urinalysis was positive last time for a pansensitive Enterococcus faecalis. Continue with ampicillin. (5) FELIX (acute kidney injury) Is this a current diagnosis for this admission?: Yes Plan: Creatinine is a little bit better than when she left 4 days ago but is still little bit elevated so we will put her on some IV fluids and monitor her urine output. Lasix on hold for now. BMP in the morning. (6) Morbid obesity with alveolar hypoventilation Is this a current diagnosis for this admission?: Yes Plan: Patient's hypoventilation syndrome with resultant hypercapnia is strongly precipitated by narcotic use and high dose of Lyrica. Interestingly, her sleep study was negative at oven tender office. Ultimately have encouraged patient to try to refrain of narcotic use and visit other means for pain control. Dietitian consulted for weight reduction plan. (7) Chronic anticoagulation Is this a current diagnosis for this admission?: Yes Plan: Continue Eliqujuaquin (8) Diabetes mellitus type 2 in obese Is this a current diagnosis for this admission?: Yes Plan: Med rec suggest patient takes Lantus 60 units and aspart 15 units with meals. Noted to be hypoglycemic mildly this morning. I will leave patient on sliding scale insulin for now. Accu-Cheks AC and at bedtime. - Time Time Spent with patient: 15-24 minutes
[2019-11-05] MEDS: AMIODARONE HCL 200 MG TABLET PO SCH (15:42)
[2019-11-05] MEDS: METOPROLOL SUCCINATE 25 MG TAB.SR.24H PO SCH (15:43)
[2019-11-05] MEDS: COLLAGENASE CLOSTRIDIUM HIST. OINT 30 GM TOP PRN (15:43)
[2019-11-05] MEDS: PREGABALIN 75 MG CAPSULE PO SCH ×2 (15:43→21:20)
[2019-11-05] MEDS: FLUTICASONE/UMECLIDIN/VILANTER 100-62.5-25 MCG/DOSE IH SCH (15:51)
[2019-11-05] MEDS: INSULIN LISPRO 100 UNIT/ML 3 ML VIAL SUBCUT SCH ×2 (17:15→21:19)
[2019-11-05] MEDS: APIXABAN 5 MG TABLET PO SCH (17:16)
--- NOTE | 2019-11-05 21:08 | PDOC CONSULTATION ---
Consultation Consult Date: 11/05/19 Provider Consulted: CLAUDIA MICHELLE Consult reason:: Diabetic pressure sore on the right heel History of Present Illness Admission Date/PCP: 11/04/19 22:27 MEDINA DUNHAM MD History of Present Illness: BISMARK MAURO is a 64 year old female who was admitted for acute respiratory failure noted to have diabetic decubitus ulcer along the right heel. Surgery is being consulted for possible debridement. Past Medical History Cardiac Medical History: Reports: Atrial Fibrillation, Coronary Artery Disease, Hyperlipidema, Hypertension Pulmonary Medical History: Reports: Asthma, Bronchitis Denies: Chronic Obstructive Pulmonary Disease (COPD), Pneumonia, Respiratory Failure, Sleep Apnea, Tuberculosis Neurological Medical History: Denies: Seizures Endocrine Medical History: Reports: Diabetes Mellitus Type 2 Denies: Diabetes Mellitus Type 1, Hyperthyroidism, Hypothyroidism Renal/ Medical History: Denies: End Stage Renal Disease Malignancy Medical History: Denies: Lung Cancer GI Medical History: Reports: Gastroesophageal Reflux Disease, Hiatal Hernia Denies: Cirrhosis, Crohn's Disease, Hepatitis Musculoskeltal Medical History: Reports: Arthritis - Lt shoulder, Rt knee Denies: Fibromyalgia, Gout Skin Medical History: Denies: Eczema Psychiatric Medical History: Denies: Bipolar Disorder, Depression, Post Traumatic Stress Disorder Hematology: Denies: Anemia, Bleeding Tendencies Past Surgical History Past Surgical History: Reports: Appendectomy, Cholecystectomy, Orthopedic Surgery - Arthroscopic surgery of the left knee, Tubal Ligation Denies: Amputation, Section, Colostomy, Coronary Artery Bypass Graft, Gastric Bypass Surgery, Herniorrhaphy, Hysterectomy, Mastectomy, Pacemaker Comment Only: Tonsillectomy - unsure Social History Smoking Status: Former Smoker Frequency of Alcohol Use: None Hx Recreational Drug Use: No Drugs: None Hx Prescription Drug Abuse: No Family History Family History: Reviewed & Not Pertinent Parental Family History Reviewed: Yes Children Family History Reviewed: No Sibling(s) Family History Reviewed.: No Medication/Allergy Home Medications: Aspirin [Aspirin EC] 81 mg PO DAILY 12/20/13 Insulin Aspart [Novolog Flexpen] 15 unit SUBCUT MEALS 12/20/13 Insulin Glargine,Hum.rec.anlog [Lantus Insulin Inj 300 Unit/3 ml Pen] 60 unit SUBCUT DAILY 12/20/13 Amitriptyline HCl [Elavil 25 mg Tablet] 25 mg PO HSP PRN MDD 50 MG 10/31/19 Apixaban [Eliquis 5 mg Tablet] 5 mg PO BID 10/31/19 Atorvastatin Calcium [Lipitor 40 mg Tablet] 40 mg PO QHS 10/31/19 Furosemide [Lasix 40 mg Tablet] 40 mg PO BID 10/31/19 Metoprolol Succinate [Toprol Xl 25 mg Tab.sr] 25 mg PO DAILY 10/31/19 Oxycodone HCl/Acetaminophen [Oxycodone-Acetaminophen 10-325] 1 each PO Q8HP PRN 10/31/19 Potassium Chloride 20 meq PO DAILY 10/31/19 Pregabalin 200 mg PO TID 10/31/19 Tapentadol HCl [Nucynta ER] 100 mg PO Q12 10/31/19 Tiotropium [place] [Spiriva Respimat] 2 spray IH DAILY 10/31/19 Amiodarone HCl [Cordarone 200 mg Tablet] 200 mg PO DAILY 11/05/19 Cholecalciferol (Vitamin D3) [Vitamin D3] 125 mcg PO DAILY 11/05/19 Allergies/Adverse Reactions: metronidazole [From Flagyl] Allergy (Severe, Verified 12/20/13 03:10) Rash Metronidazole HCl [From Flagyl] Allergy (Severe, Verified 12/20/13 03:10) Rash Review of Systems Review of Systems: Denies any pains along the right heel. Be due to diabetic neuropathy Physical Exam Vital Signs: Temp Pulse Resp BP Pulse Ox 98.1 F 89 17 139/64 H 89 L 11/05/19 16:57 11/05/19 19:00 11/05/19 16:57 11/05/19 16:57 11/05/19 16:57 Intake & Output 11/04/19 11/05/19 11/06/19 06:59 06:59 06:59 Intake Total 150 1318 Balance 150 1318 Weight 115.6 kg Exam: As a decubitus ulcer along the right heel roughly about 2 x 3 cm. It has dry scab and appears to be grade 2-3 decubitus ulcer. No evidence of infection. It is nontender. Unable to readily palpate right ankle pulses. However I could feel a right popliteal artery pulse. Patient had knee surgery for patellar fracture and is difficulty bending the knee and has discomfort primarily along the knee. Results Laboratory Results: 11/05/19 06:20 11/05/19 06:20 11/04/19 11/05/19 11/05/19 20:17 06:17 06:20 WBC 8.5 RBC 3.14 L Hgb 8.2 L Hct 25.7 L MCV 82 MCH 26.0 L MCHC 31.7 L RDW 24.6 H Plt Count 118 L Carbonic Acid 1.81 H 1.56 H HCO3/H2CO3 Ratio 19:1 24:1 ABG pH 7.40 7.48 H ABG pCO2 60.1 H 51.9 H ABG pO2 124.4 H 60.5 L ABG HCO3 36.0 H 38.1 H ABG O2 Saturation 98.4 H 92.4 L ABG Base Excess 9.7 13.3 FiO2 2L 2L Sodium Potassium Chloride Carbon Dioxide Anion Gap BUN Creatinine Est GFR ( Amer) Glucose Calcium 11/05/19 06:20 WBC RBC Hgb Hct MCV MCH MCHC RDW Plt Count Carbonic Acid HCO3/H2CO3 Ratio ABG pH ABG pCO2 ABG pO2 ABG HCO3 ABG O2 Saturation ABG Base Excess FiO2 Sodium 141.0 Potassium 4.0 Chloride 100 Carbon Dioxide 37 H Anion Gap 4 L BUN 24 H Creatinine 1.27 H Est GFR ( Amer) 51 L Glucose 63 L Calcium 8.9 11/04/19 13:45 Troponin I < 0.012 NT-Pro-B Natriuret Pep 2160 H Impressions: Chest X-Ray 11/04/19 12:58 IMPRESSION: NO ACUTE RADIOGRAPHIC FINDING IN THE CHEST. Assessment & Plan - Diagnosis (1) Diabetic decubitus ulcer right heel stag Is this a current diagnosis for this admission?: Yes (2) Diabetes mellitus type 2 in obese Is this a current diagnosis for this admission?: Yes (3) Obesity hypoventilation syndrome Is this a current diagnosis for this admission?: Yes - Time Time Spent: 30 to 50 Minutes - Plan Summary Plan Summary: 64-year-old female admitted for acute respiratory failure metabolic abnormality, noted to have diabetic decubitus ulcer of the right heel. Right heel ulcer roughly measures 2 x 3 cm with some portions with dried scab that is very adherent to the underlying tissue. There is no obvious infection and patient does not have any sensation along the right foot likely due to diabetic neuropathy. Recommendations: There is no emergent need to debride ulcer since there is no evidence of infection. I agree with Xantyl as a chemical debridement. Instructed the nurses to avoid pressure on both heels by placing pillows underneath knee and just above the heel. We will sign off but may call for questions.
[2019-11-05] MEDS ORDERED: ATORVASTATIN CALCIUM 40 MG TABLET PO SCH (22:00)
[2019-11-06] MEDS: AMPICILLIN SODIUM 2 GM in NORMAL SALINE 100 ML IV SCH ×3 (03:33→15:17)
[2019-11-06] MEDS: PREGABALIN 75 MG CAPSULE PO SCH ×2 (06:32→13:35)
[2019-11-06 06:57] LABS: ANION GAP 5 (5-19); BLOOD UREA NITROGEN 19 mg/dL (7-20); CALCIUM 8.6 mg/dL (8.4-10.2); CARBON DIOXIDE 32 mmol/L (22-30); CHLORIDE 103 mmol/L (98-107); GLUCOSE 128 mg/dL (75-110)
[2019-11-06 07:05] LABS: HEMATOCRIT 24.9 % (36.0-47.0); HEMOGLOBIN 8.2 g/dL (12.0-15.5); MEAN CORPUSCULAR HEMOGLOBIN 26.8 pg (27.0-33.4); MEAN CORPUSCULAR HGB CONC 32.8 g/dL (32.0-36.0); MEAN CORPUSCULAR VOLUME 82 fl (80-97); PLATELET COUNT 101 10^3/uL (150-450); RED BLOOD COUNT 3.04 10^6/uL (3.72-5.28); RED CELL DISTRIBUTION WIDTH 24.3 % (11.5-14.0); WHITE BLOOD COUNT 7.3 10^3/uL (4.0-10.5)
[2019-11-06] MEDS: INSULIN LISPRO 100 UNIT/ML 3 ML VIAL SUBCUT SCH ×3 (07:47→16:47)
[2019-11-06] MEDS: NORMAL SALINE 1000 ML 1,000 ML IV PRN (09:31)
[2019-11-06] MEDS: FLUTICASONE/UMECLIDIN/VILANTER 100-62.5-25 MCG/DOSE IH SCH (09:33)
[2019-11-06] MEDS: METOPROLOL SUCCINATE 25 MG TAB.SR.24H PO SCH (09:33)
[2019-11-06] MEDS: APIXABAN 5 MG TABLET PO SCH (09:33)
[2019-11-06] MEDS: AMIODARONE HCL 200 MG TABLET PO SCH (09:33)
[2019-11-06] MEDS: COLLAGENASE CLOSTRIDIUM HIST. OINT 30 GM TOP PRN (09:37)
[2019-11-06] MEDS ORDERED: CHOLECALCIFEROL (D3) 400 UNIT TABLET PO SCH (10:00)
[2019-11-06] MEDS ORDERED: ASPIRIN 81 MG TABLET, ENT COATED PO SCH (10:00)
--- NOTE | 2019-11-06 13:31 | PDOC DISCHARGE SUMMARY ---
Impression - Admit/DC Date/PCP Admission Date/Primary Care Provider: 11/04/19 22:27 MEDINA DUNHAM MD Discharge Date: 11/06/19 - Discharge Diagnosis (1) Hypercapnic respiratory failure Is this a current diagnosis for this admission?: Yes (2) Metabolic encephalopathy Is this a current diagnosis for this admission?: Yes (3) Chronic prescription opiate use Is this a current diagnosis for this admission?: Yes (4) UTI (urinary tract infection) Is this a current diagnosis for this admission?: Yes (5) FELIX (acute kidney injury) Is this a current diagnosis for this admission?: Yes (6) Morbid obesity with alveolar hypoventilation Is this a current diagnosis for this admission?: Yes (7) Chronic anticoagulation Is this a current diagnosis for this admission?: Yes (8) Diabetes mellitus type 2 in obese Is this a current diagnosis for this admission?: Yes - Additional Information Referrals: ROXANNE OLSEN MD [NO LOCAL MD] - JUANCARLOS CARSON MD [ACTIVE STAFF] - MEDINA DUNHAM MD [Primary Care Provider] - Follow up as needed Prescriptions: Amoxicillin 1 tab PO TID #12 tab Home Medications: Aspirin [Aspirin EC] 81 mg PO DAILY 12/20/13 Insulin Aspart [Novolog Flexpen] 15 unit SUBCUT MEALS 12/20/13 Insulin Glargine,Hum.rec.anlog [Lantus Insulin Inj 300 Unit/3 ml Pen] 60 unit SUBCUT DAILY 12/20/13 Apixaban [Eliquis 5 mg Tablet] 5 mg PO BID 10/31/19 Atorvastatin Calcium [Lipitor 40 mg Tablet] 40 mg PO QHS 10/31/19 Metoprolol Succinate [Toprol Xl 25 mg Tab.sr] 25 mg PO DAILY 10/31/19 Potassium Chloride 20 meq PO DAILY 10/31/19 Tiotropium [place] [Spiriva Respimat] 2 spray IH DAILY 10/31/19 Amiodarone HCl [Cordarone 200 mg Tablet] 200 mg PO DAILY 11/05/19 Cholecalciferol (Vitamin D3) [Vitamin D3] 125 mcg PO DAILY 11/05/19 Amoxicillin 1 tab PO TID #12 tab 11/06/19 Collagenase Clostridium Hist. [Santyl Ointment 30 gm] 1 applic TOP DAILY PRN #1 tube 11/06/19 Furosemide [Lasix 40 mg Tablet] 40 mg PO DAILY #0 11/06/19 Pregabalin 75 mg PO TID #0 11/06/19 History of Present Illiness History of Present Illness: According to admitting: BISMARK MAURO is a 64 year old female with a history of SVT on chronic anticoagulation, chronic hypoxemic respiratory failure, chronic pain on chronic opiates, asthma, morbid obesity, hyperlipidemia, and insulin-dependent diabetes mellitus who left this hospital AGAINST MEDICAL ADVICE 4 days ago. At that time she had been admitted with a possible UTI and metabolic encephalopathy with an elevated PCO2 on her blood gas. She has been documented to be chronically noncompliant and during her last hospitalization it was recommended that she use a BiPAP mask to help improve her ventilation and reduce her PCO2. However, she refused and left AGAINST MEDICAL ADVICE as previously noted. She is back in today with a similar presentation to her previous hospitalization. She is noted to be encephalopathic at home by her significant other. She has not had any fevers. No abdominal pain, nausea, vomiting, or diarrhea. She has continued to take all of her medications. She also has a large open blister on the posterior aspect of her right heel where her knee immobilizer that she was wearing on the right with slipped down and rub the back of her foot. It is open and needs some local wound care but it does not appear infected. When told she will have to wear a BiPAP mask because her PCO2 is elevated she begins crying and wailing and moaning saying that she cannot do it. Her creatinine is still a little bit elevated and it was a little elevated the last time she was here. She has no dysuria but urinalysis was again suggestive of UTI. Hospital Course Hospital Course: (1) Hypercapnic respiratory failure Qualifiers: Chronicity: acute on chronic Qualified Code(s): J96.22 - Acute and chronic respiratory failure with hypercapnia Is this a current diagnosis for this admission?: Yes Plan: This has become a recurrent issue for patient leading to frequent episodes of metabolic encephalopathy from CO2 narcosis and oversedation. PCO2 on this admission was 60. Treated with BiPAP while in the hospital on the first day. Mental status went back to normal after this. She does have a strong history of noncompliance with NIPPV and on multiple occ asions, we have had to [place] to convince patient to put on her mask. I discussed directly with patient's meeting manager Dr. Olsen at [facility] pulmonology who states that they did a sleep study which was negative for ULICES surprisingly and that the main problem with her recurrent hypercapnic respiratory failure is a loss of respiratory drive from her sedating medications. He states that on multiple admissions, she does very well once sedative medications are stopped but when she gets home she resumes these medications and ends up in the hospital again. He recommends de-escalation of sedative meds as goal of treatment. I have done so and counseled patient and patient's boyfriend significantly on this. She expresses understanding. (2) Metabolic encephalopathy Is this a current diagnosis for this admission?: Yes Plan: Secondary to hypercapnic respiratory failure and oversedation from her medications. Treated with BiPAP while in the hospital. Metabolic encephalopathy has resolved. I have discontinued patient's narcotic and instructed patient to stop all her narcotic medications. I have also recommended that they have the pain specialist Thalia Vargas whom she follows decrease her Lyrica dose from 200 mg to 75 mg 3 times daily and consider some non-narcotic pain management alternatives for her chronic pain. Have also instructed patient, patient's boyfriend and patient's son to ensure that they keep a close monitoring on her blood sugars especially given that she is on such high doses of insulin to see if she is having any episodes of hypoglycemia that may be contributing to her presentation. I have also counseled the boyfriend of symptoms of hypoglycemia to look out for. Home chcf will be set up to help with this. (3) Chronic prescription opiate use Is this a current diagnosis for this admission?: Yes Plan: Narcotics discontinued. Will visit other means for pain control. Patient to follow-up with Thalia Vargas. (4) UTI (urinary tract infection) Qualifiers: Urinary tract infection type: acute cystitis Hematuria presence: without hematuria Qualified Code(s): N30.00 - Acute cystitis without hematuria Is this a current diagnosis for this admission?: Yes Plan: Urinalysis was positive last time for a pansensitive Enterococcus faecalis. Received IV ampicillin in the hospital. Will discharge on amoxicillin. (5) FELIX (acute kidney injury) Is this a current diagnosis for this admission?: Yes Plan: Creatinine improved. She received IV fluids. I have de-escalated her Lasix dose from twice daily to once a day dosing. (6) Morbid obesity with alveolar hypoventilation Is this a current diagnosis for this admission?: Yes Plan: Patient's hypoventilation syndrome with resultant hypercapnia is strongly precipitated by narcotic use and high dose of Lyrica. Interestingly, her sleep study was negative at meeting manager office. Ultimately have encouraged patient to try to refrain of narcotic use and visit other means for pain control. Dietitian consulted for weight reduction plan. (7) Chronic anticoagulation Is this a current diagnosis for this admission?: Yes Plan: Continue Eliquis Physical Exam Vital Signs: Temp Pulse Resp BP Pulse Ox 97.6 F 81 22 H 137/76 H 94 11/06/19 11:22 11/06/19 11:22 11/06/19 11:22 11/06/19 11:22 11/06/19 11:22 Intake & Output 11/05/19 11/06/19 11/07/19 06:59 06:59 06:59 Intake Total 150 2768 305 Output Total 2 Balance 150 2768 303 Weight 115.6 kg 118.9 kg General appearance: PRESENT: no acute distress, cooperative, morbidly obese Respiratory exam: PRESENT: clear to auscultation shena, unlabored Neurological exam: PRESENT: alert, awake, oriented to person, oriented to place, oriented to time, oriented to situation, other - Non-tremulous Psychiatric exam: ABSENT: agitated, anxious Results Laboratory Results: WBC 7.3 10^3/uL (4.0-10.5) 11/06/19 06:23 RBC 3.04 10^6/uL (3.72-5.28) L 11/06/19 06:23 Hgb 8.2 g/dL (12.0-15.5) L 11/06/19 06:23 Hct 24.9 % (36.0-47.0) L 11/06/19 06:23 MCV 82 fl (80-97) 11/06/19 06:23 MCH 26.8 pg (27.0-33.4) L 11/06/19 06:23 MCHC 32.8 g/dL (32.0-36.0) 11/06/19 06:23 RDW 24.3 % (11.5-14.0) H 11/06/19 06:23 Plt Count 101 10^3/uL (150-450) L 11/06/19 06:23 Lymph % (Auto) 24.1 % (13-45) 11/04/19 13:45 [place] % (Auto) 7.2 % (3-13) 11/04/19 13:45 Eos % (Auto) 5.9 % (0-6) 11/04/19 13:45 Baso % (Auto) 0.9 % (0-2) 11/04/19 13:45 Absolute Neuts (auto) 5.1 10^3/uL (1.7-8.2) 11/04/19 13:45 Absolute Lymphs (auto) 2.0 10^3/uL (0.5-4.7) 11/04/19 13:45 Absolute Monos (auto) 0.6 10^3/uL (0.1-1.4) 11/04/19 13:45 Absolute Eos (auto) 0.5 10^3/uL (0.0-0.6) 11/04/19 13:45 Absolute Basos (auto) 0.1 10^3/uL (0.0-0.2) 11/04/19 13:45 Seg Neutrophils % 61.9 % (42-78) 11/04/19 13:45 Toxic Granulation SLIGHT 11/04/19 13:45 Platelet Comment DECREASED 11/04/19 13:45 Poikilocytosis 2+ 11/04/19 13:45 Anisocytosis 3+ 11/04/19 13:45 Tear Drop Cells SLIGHT 11/04/19 13:45 Ovalocytes 1+ 11/04/19 13:45 Stomatocytes SLIGHT 11/04/19 13:45 Carbonic Acid 1.56 mmol/L (1.05-1.35) H 11/05/19 06:17 HCO3/H2CO3 Ratio 24:1 11/05/19 06:17 ABG pH 7.48 (7.35-7.45) H 11/05/19 06:17 ABG pCO2 51.9 mmHg (35-45) H 11/05/19 06:17 ABG pO2 60.5 mmHg (80-100) L 11/05/19 06:17 ABG HCO3 38.1 mmol/L (20-24) H 11/05/19 06:17 ABG Total CO2 39.7 mmol/L (21-25) H 11/05/19 06:17 ABG O2 Saturation 92.4 % (94-98) L 11/05/19 06:17 ABG Base Excess 13.3 mmol/L 11/05/19 06:17 FiO2 2L 11/05/19 06:17 Sodium 139.6 mmol/L (137-145) 11/06/19 06:23 Potassium 4.0 mmol/L (3.6-5.0) 11/06/19 06:23 Chloride 103 mmol/L (98-107) 11/06/19 06:23 Carbon Dioxide 32 mmol/L (22-30) H 11/06/19 06:23 Anion Gap 5 (5-19) 11/06/19 06:23 BUN 19 mg/dL (7-20) 11/06/19 06:23 Creatinine 1.19 mg/dL (0.52-1.25) 11/06/19 06:23 Est GFR ( Amer) 55 (>60) L 11/06/19 06:23 Est GFR (MDRD) Non-Af 46 (>60) L 11/06/19 06:23 Glucose 128 mg/dL (75-110) H 11/06/19 06:23 POC Glucose 226 mg/dL (70-110) H 11/06/19 11:22 Lactic Acid 0.7 mmol/L (0.7-2.1) 11/04/19 13:45 Calcium 8.6 mg/dL (8.4-10.2) 11/06/19 06:23 Total Bilirubin 0.6 mg/dL (0.2-1.3) 11/04/19 13:45 Direct Bilirubin 0.0 mg/dL (0.0-0.4) 11/04/19 13:45 Neonat Total Bilirubin Not Reportable 11/04/19 13:45 Neonat Direct Bilirubin Not Reportable 11/04/19 13:45 Neonat Indirect Bili Not Reportable 11/04/19 13:45 AST 36 U/L (14-36) 11/04/19 13:45 ALT 16 U/L (<35) 11/04/19 13:45 Alkaline Phosphatase 105 U/L (38-126) 11/04/19 13:45 Troponin I < 0.012 ng/mL 11/04/19 13:45 NT-Pro-B Natriuret Pep 2160 pg/mL (<125) H 11/04/19 13:45 Total Protein 7.1 g/dL (6.3-8.2) 11/04/19 13:45 Albumin 3.7 g/dL (3.5-5.0) 11/04/19 13:45 Urine Color YELLOW 11/04/19 17:04 Urine Appearance CLOUDY 11/04/19 17:04 Urine pH 6.0 (5.0-9.0) 11/04/19 17:04 Ur Specific [place] 1.012 11/04/19 17:04 Urine Protein NEGATIVE mg/dL (NEGATIVE) 11/04/19 17:04 Urine Glucose (UA) NEGATIVE mg/dL (NEGATIVE) 11/04/19 17:04 Urine Ketones NEGATIVE mg/dL (NEGATIVE) 11/04/19 17:04 Urine Blood NEGATIVE (NEGATIVE) 11/04/19 17:04 Urine Nitrite NEGATIVE (NEGATIVE) 11/04/19 17:04 Urine Bilirubin NEGATIVE (NEGATIVE) 11/04/19 17:04 Urine Urobilinogen NEGATIVE mg/dL (<2.0) 11/04/19 17:04 Ur Leukocyte Esterase LARGE (NEGATIVE) H 11/04/19 17:04 Urine WBC (Auto) 63 /HPF 11/04/19 17:04 Urine RBC (Auto) 1 /HPF 11/04/19 17:04 Urine Bacteria (Auto) 3+ /HPF 11/04/19 17:04 Squamous Epi Cells Auto <1 /HPF 11/04/19 17:04 Amorphous Sediment Auto TRACE /HPF 11/04/19 17:04 Urine Mucus (Auto) MANY /LPF 11/04/19 17:04 Urine Ascorbic Acid 40 (NEGATIVE) H 11/04/19 17:04 11/04/19 13:45 Troponin I < 0.012 NT-Pro-B Natriuret Pep 2160 H Impressions: Chest X-Ray 11/04/19 12:58 IMPRESSION: NO ACUTE RADIOGRAPHIC FINDING IN THE CHEST. Plan Time Spent: Greater than 30 Minutes Stroke Is this a Stroke Patient?: No Acute Heart Failure - Is this a Heart Failure Patient?: No
[2019-11-06 13:55] VITALS: BP 120/68
== END 2019-11-06 17:00 | disposition home health service (06) | DRG 189 ==
LOC: ER 12:26 → EH 22:27 → 3S 23:31
PROVIDERS: ADMIT Family Medicine; ATTEND Internal Medicine
DX: J96.22 Acute and chronic respiratory failure with hypercapnia (principal); G93.41 Metabolic encephalopathy; N39.0 Urinary tract infection, site not specified; E87.2 Acidosis; N17.9 Acute kidney failure, unspecified; E66.2 Morbid (severe) obesity with alveolar hypoventilation; L97.418 Non-pressure chronic ulcer of right heel and midfoot with other specified severity; I48.91 Unspecified atrial fibrillation; I25.10 Atherosclerotic heart disease of native coronary artery without angina pectoris; E11.621 Type 2 diabetes mellitus with foot ulcer; I10 Essential (primary) hypertension; E78.00 Pure hypercholesterolemia, unspecified; K21.9 Gastro-esophageal reflux disease without esophagitis; K44.9 Diaphragmatic hernia without obstruction or gangrene; K58.9 Irritable bowel syndrome, unspecified; R41.82 Altered mental status, unspecified; Z79.01 Long term (current) use of anticoagulants; Z79.82 Long term (current) use of aspirin; Z79.4 Long term (current) use of insulin; Z79.51 Long term (current) use of inhaled steroids; Z79.899 Other long term (current) drug therapy
CPT/HCPCS: 36415; 71046; 80048; 80053; 81001; 82803; 82962; 83605; 83880; 84484; 85025; 85027; 87040; 93005; 93010; 94660; 96360; 99285; J0290; J0878; J1815; J3490; J7030; J7050